=== PATIENT | female | born 1950 | race American Indian/Alaskan Native ===

== ENCOUNTER 2018-05-31 13:51 | Inpatient (IN) | payer MEDICARE ==
[2018-05-31 15:23] LABS: BASO % 0.8 % (0.0-2.0); EOS # 0.1 K/uL (0.0-0.7); EOS % 2.7 % (0.0-4.0); HEMOGLOBIN 12.5 g/dL (11.0-16.0); LYMPH # 1.1 K/uL (1.0-4.3); LYMPH % 23.2 % (20.0-40.0); MEAN CELL VOLUME 80.7 fL (81.0-99.0); MEAN CORPUSCULAR HEMOGLOBIN 26.2 pg (27.0-31.0); MEAN CORPUSCULAR HGB CONC 32.5 g/dL (33.0-37.0); MONO # 0.4 K/uL (0.0-0.8); MONO % 7.9 % (0.0-10.0); NEUT % 65.4 % (50.0-75.0); RBC 4.76 Mil/uL (3.80-5.20); RED CELL DISTRIBUTION WIDTH 14.7 % (11.5-14.5); WHITE BLOOD COUNT 4.6 K/uL (4.8-10.8)
[2018-05-31] MEDS ORDERED: Sodium Chloride 0.9% 1,000 ML IV ONE (15:33)
[2018-05-31 15:36] LABS: BLOOD UREA NITROGEN 9 mg/dL (7-17); CALCIUM 9.4 mg/dl (8.6-10.4); GFR NON-AFRICAN AMERICAN 45; LIPASE 32 U/L (23-300)
[2018-05-31 15:37] LABS: ALBUMIN 4.2 g/dL (3.5-5.0); ALT/SGPT < 6 U/L (9-52); AST/SGOT 20 U/L (14-36)
[2018-05-31] MEDS ORDERED: Iohexol 350mg/ml 100 ML ONE (17:28)
--- NOTE | 2018-05-31 18:27 | C.PDOC ---
History Of Present Illness 67 year old female presents to the ED for evaluation of nausea and vomiting which began two months ago. Patient also reports mild abdominal pain and diarrhea. Patient saw her GI Dr. Reid who did endoscopy on 05/02. They went to get results today, and told that symptoms are caused by reflux. Patient stated to him that she still has vomiting and diarrhea and was sent to the ED for further evaluation. Last diarrhea was this morning. daughter also states that patient lost 25 pounds over the past month. surgical history of appendectomy, cholecysectomy, some back surgery, SAADIA Time Seen by Provider: 05/31/18 14:37 Chief Complaint (Nursing): GI Problem History Per: Patient History/Exam Limitations: no limitations Past Medical History Reviewed: Historical Data, Nursing Documentation, Vital Signs Vital Signs: Last Vital Signs Temp 98 F 05/31/18 14:02 Pulse 107 H 05/31/18 14:02 Resp 20 05/31/18 14:02 BP 117/92 H 05/31/18 14:02 Pulse Ox 98 05/31/18 14:02 - Medical History PMH: Asthma, HTN, Hyperlipidemia Surgical History: Appendectomy, Back Surgery, Cholecystectomy, Tonsillectomy Family History: States: No Known Family Hx - Social History Hx Alcohol Use: No Hx Substance Use: No - Immunization History Hx Tetanus Toxoid Vaccination: No Hx Influenza Vaccination: Yes (11/2017) Hx Pneumococcal Vaccination: No Review Of Systems Gastrointestinal: Positive for: Abdominal Pain, Diarrhea Physical Exam - Physical Exam Appears: Non-toxic, No Acute Distress Skin: Normal Color, Warm, Dry Head: Atraumatic, Normacephalic Eye(s): bilateral: Normal Inspection Oral Mucosa: Moist Neck: Supple Chest: Symmetrical, No Deformity, No Tenderness Cardiovascular: Rhythm Regular, No Murmur Respiratory: Normal Breath Sounds, No Rales, No Rhonchi, No Wheezing Gastrointestinal/Abdominal: Bowel Sounds (decreased ), Soft, No Tenderness, No Guarding, No Rebound, No Hernia, Other (obese ) Back: No CVA Tenderness Extremity: Normal ROM, Capillary Refill (less than2 seconds ) Neurological/Psych: Oriented x3, Normal Speech Gait: Steady ED Course And Treatment - Laboratory Results Result Diagrams: 06/07/18 07:47 06/07/18 07:47 Lab Results: Total Bilirubin 1.1 mg/dL (0.2-1.3) 05/31/18 15:13 AST 20 U/L (14-36) 05/31/18 15:13 ALT < 6 U/L (9-52) L 05/31/18 15:13 Alkaline Phosphatase 97 U/L (38-126) 05/31/18 15:13 Total Protein 8.4 g/dL (6.3-8.3) H 05/31/18 15:13 Albumin 4.2 g/dL (3.5-5.0) 05/31/18 15:13 Globulin 4.2 gm/dL (2.2-3.9) H 05/31/18 15:13 Albumin/Globulin Ratio 1.0 (1.0-2.1) 05/31/18 15:13 Lipase 32 U/L (23-300) 05/31/18 15:13 O2 Sat by Pulse Oximetry: 98 Medical Decision Making Medical Decision Making: bloodwork, urinalysis CT ordered and reviewed. Zofran and ivf given. CT interpreted by rad as possible acute diverticulitis. Plan abx, admit for further evaluation and management. Patient agreeable w/POC. 18:50 Case d/w Dr. Bruner who accepts patient to his service. Disposition Counseled Patient/Family Regarding: Studies Performed, Diagnosis - Disposition Disposition: HOSPITALIZED Disposition Time: 18:50 Condition: STABLE - Clinical Impression Clinical Impression: Diarrhea, Nausea and vomiting, Abdominal pain
--- NOTE | 2018-05-31 18:29 | CT ---
Date of service: 05/31/2018 PROCEDURE: CT Abdomen and Pelvis with contrast HISTORY: Abdominal pain and vomiting COMPARISON: None available. TECHNIQUE: CT scan of the abdomen and pelvis was performed after administration of intravenous contrast. Oral contrast was not administered. Coronal and sagittal reformatted images were obtained. Contrast dose: 100 mL Omnipaque 320 Radiation dose: Total exam DLP = 1162.29 mGy-cm. This CT exam was performed using one or more of the following dose reduction techniques: Automated exposure control, adjustment of the mA and/or kV according to patient size, and/or use of iterative reconstruction technique. FINDINGS: LOWER THORAX: The visualized lungs are clear. LIVER: Mild hepatomegaly and fatty liver. Normal homogeneous enhancement. No gross lesion or ductal dilatation. GALLBLADDER AND BILE DUCTS: Well distended. No calcified gallstones, wall thickening or pericholecystic fluid. PANCREAS: Fatty replacement of the pancreas. Normal homogeneous enhancement. No gross lesion or ductal dilatation. SPLEEN: Normal in size and appearance. ADRENALS: No discrete nodule. KIDNEYS AND URETERS: Normal in size with homogeneous enhancement. No hydronephrosis. No solid mass. Simple cysts in both kidneys, the largest in the left upper pole measures 3.4 x 3.3 cm. VASCULATURE: No aortic aneurysm. There are no aortic atherosclerotic calcifications or mural plaque present. BOWEL: Evaluation of the bowel is limited in the absence of oral contrast. The small bowel loops are normal in caliber. There is left colonic diverticulosis. There is apparent circumferential mural thickening in the proximal sigmoid colon. There is fluid in the rectum and distal sigmoid colon with mild mucosal enhancement. No bowel dilatation or obstruction. APPENDIX: Not visualized. No inflammatory changes in the right lower quadrant. PERITONEUM: No free fluid. No free air. LYMPH NODES: No enlarged lymph nodes. BLADDER: Well distended and normal in appearance. REPRODUCTIVE: The uterus is normal in size. The central endometrial echo complex is thick for postmenopausal status. BONES: No acute fracture. Status post posterior spinal fixation with transpedicular screws in the lower lumbar spine. OTHER FINDINGS: None. IMPRESSION: 1. Left colonic diverticulosis. Apparent circumferential mural thickening in the sigmoid colon is nonspecific and could be related to underdistention however acute diverticulitis cannot be excluded. Fluid and mucosal enhancement in the distal sigmoid colon and rectum could represent nonspecific colitis/proctitis. Clinical follow-up is advised. 2. The central endometrial echo complex is thickened for postmenopausal status. Please correlate with pelvic ultrasound examination. 3. Mild hepatomegaly and fatty liver. 4. Simple renal cysts, the largest in the left upper pole measures 3.4 cm.
[2018-05-31] MEDS ORDERED: metroNIDAZOLE IV 500 mg/100 ml 500 MG/100 ML BAG IVPB STA (18:58)
[2018-05-31] MEDS ORDERED: metroNIDAZOLE IV 500 mg/100 ml 500 MG/100 ML BAG ONE (19:47)
[2018-05-31] MEDS ORDERED: Sodium Chloride 0.9% 1,000 ML ONE (19:47)
[2018-05-31] MEDS: Sodium Chloride 0.9% 1,000 ML IV SCH (19:50)
[2018-05-31] MEDS: Ciprofloxacin 400mg/200ml D5W 400 MG/200 ML BAG IVPB SCH (22:08)
[2018-05-31 23:03] LABS: SQUAMOUS EPITHIAL 6 /hpf (0-5); URINE BACTERIA RARE (<OCC); URINE BILIRUBIN NEGATIVE (NEGATIVE); URINE BLOOD NEGATIVE (NEGATIVE); URINE CLARITY Clear (Clear); URINE COLOR Yellow (YELLOW); URINE GLUCOSE (UA) NORMAL (Normal); URINE LEUKOCYTE ESTERASE NEG Leu/uL (Negative); URINE PROTEIN NEGATIVE (NEGATIVE); URINE UROBILINOGEN NORMAL mg/dL (0.2-1.0)
[2018-06-01] MEDS: Sodium Chloride 0.9% 1,000 ML IV SCH ×3 (05:46→15:55)
[2018-06-01] MEDS ORDERED: metroNIDAZOLE IV 500 mg/100 ml 500 MG/100 ML BAG IVPB SCH (06:00)
--- NOTE | 2018-06-01 09:03 | CP.PCM.CON ---
Past Patient History - Past Medical History & Family History Past Medical History?: Yes - Past Social History Smoking Status: Never Smoked - CARDIAC Hx Cardiac Disorders: Yes Hx Hypertension: Yes - PULMONARY Hx Respiratory Disorders: Yes Hx Asthma: Yes - NEUROLOGICAL Hx Neurological Disorder: No - HEENT Hx HEENT Problems: No - RENAL Hx Chronic Kidney Disease: No - ENDOCRINE/METABOLIC Hx Endocrine Disorders: No - HEMATOLOGICAL/ONCOLOGICAL Hx Blood Disorders: No - INTEGUMENTARY Hx Dermatological Problems: No - MUSCULOSKELETAL/RHEUMATOLOGICAL Hx Musculoskeletal Disorders: No Hx Falls: No - GASTROINTESTINAL Hx Gastrointestinal Disorders: Yes Other/Comment: abdominal pain - GENITOURINARY/GYNECOLOGICAL Hx Genitourinary Disorders: No - PSYCHIATRIC Hx Psychophysiologic Disorder: No Hx Substance Use: No - SURGICAL HISTORY Hx Surgeries: Yes Hx Appendectomy: Yes Hx Cholecystectomy: Yes Hx Tonsillectomy: Yes - ANESTHESIA Hx Anesthesia: Yes Hx Anesthesia Reactions: No Hx Malignant Hyperthermia: No Meds Allergies/Adverse Reactions: Allergies Allergy/AdvReac Type Severity Reaction Status Date / Time No Known Allergies Allergy Verified 05/31/18 14:06 - Medications Medications: Current Medications Albuterol/Ipratropium (Duoneb 3 Mg/0.5 Mg (3 Ml) Ud) 3 ml INH RQ6 [facility] Enoxaparin Sodium (Lovenox) 40 mg SC DAILY [facility] Home Med (Valsartan/Hydrochlorothiazide [Valsartan-Hctz 160-12.5 Mg Tab]) 1 tab PO DAILY [facility] Sodium Chloride (Sodium Chloride 0.9%) 1,000 mls @ 100 mls/hr IV .Q10H [facility] Last Admin: 06/01/18 05:46 Dose: Not Given Ciprofloxacin (Cipro 400mg/200ml Dsw) 400 mg in 200 mls @ 133 mls/hr IVPB Q12H [facility]; Protocol Last Admin: 05/31/18 22:08 Dose: 133 mls/hr Metronidazole (Flagyl) 500 mg in 100 mls @ 100 mls/hr IVPB Q8H [facility]; Protocol Last Admin: 06/01/18 05:41 Dose: 100 mls/hr Nebivolol (Bystolic) 5 mg PO ONCE [facility] Ondansetron HCl (Zofran Inj) 4 mg IVP Q6 PRN PRN Reason: Nausea/Vomiting Pantoprazole Sodium (Protonix Inj) 40 mg IVP Q12H [facility] Last Admin: 05/31/18 22:19 Dose: 40 mg Rosuvastatin Calcium (Crestor) 10 mg PO HS [facility] Last Admin: 05/31/18 22:20 Dose: 10 mg Results - Vital Signs Recent Vital Signs: Last Vital Signs Temp 98.1 F 06/01/18 07:26 Pulse 79 06/01/18 07:26 Resp 20 06/01/18 07:26 BP 127/79 06/01/18 07:26 Pulse Ox 98 06/01/18 07:26 - Labs Result Diagrams: 05/31/18 15:13 05/31/18 15:13 Labs: Laboratory Results - last 24 hr 05/31/18 05/31/18 05/31/18 15:13 15:13 21:22 WBC 4.6 L RBC 4.76 Hgb 12.5 Hct 38.4 MCV 80.7 L MCH 26.2 L MCHC 32.5 L RDW 14.7 H Plt Count 221 MPV 10.0 Neut % (Auto) 65.4 Lymph % (Auto) 23.2 [place] % (Auto) 7.9 Eos % (Auto) 2.7 Baso % (Auto) 0.8 Neut # (Auto) 3.0 Lymph # (Auto) 1.1 [place] # (Auto) 0.4 Eos # (Auto) 0.1 Baso # (Auto) 0.0 Sodium 138 Potassium 4.5 Chloride 101 Carbon Dioxide 22 Anion Gap 18 BUN 9 Creatinine 1.2 Est GFR ( Amer) 54 Est GFR (Non-Af Amer) 45 Random Glucose 101 Calcium 9.4 Total Bilirubin 1.1 AST 20 ALT < 6 L Alkaline Phosphatase 97 Total Protein 8.4 H Albumin 4.2 Globulin 4.2 H Albumin/Globulin Ratio 1.0 Lipase 32 Urine Color Urine Clarity Urine pH Ur Specific [place] Urine Protein Urine Glucose (UA) Urine Ketones Urine Blood Urine Nitrate Urine Bilirubin Urine Urobilinogen Ur Leukocyte Esterase Urine WBC (Auto) Urine RBC (Auto) Ur Squamous Epith Cells Urine Bacteria Theophylline 9.8 L 05/31/18 22:54 WBC RBC Hgb Hct MCV MCH MCHC RDW Plt Count MPV Neut % (Auto) Lymph % (Auto) [place] % (Auto) Eos % (Auto) Baso % (Auto) Neut # (Auto) Lymph # (Auto) [place] # (Auto) Eos # (Auto) Baso # (Auto) Sodium Potassium Chloride Carbon Dioxide Anion Gap BUN Creatinine Est GFR ( Amer) Est GFR (Non-Af Amer) Random Glucose Calcium Total Bilirubin AST ALT Alkaline Phosphatase Total Protein Albumin Globulin Albumin/Globulin Ratio Lipase Urine Color Yellow Urine Clarity Clear Urine pH 6.0 Ur Specific [place] 1.015 Urine Protein Negative Urine Glucose (UA) Normal Urine Ketones Negative Urine Blood Negative Urine Nitrate Negative Urine Bilirubin Negative Urine Urobilinogen Normal Ur Leukocyte Esterase Neg Urine WBC (Auto) 2 Urine RBC (Auto) 2 Ur Squamous Epith Cells 6 H Urine Bacteria Rare Theophylline
--- NOTE | 2018-06-01 09:14 | CP.PCM.CON ---
History of Present Illness - History of Present Illness History of Present Illness: Covering Dr Harper CC: nausea, vomitind, diarrhea FLORY: 67 yr old asthmatic woman admitted with persistent vomiting and watery diarrhea since March accompanied by poor appetite, 20 lb weight loss and abdominal discomfort. EGD by Dr Harper was apparently non diagnostic and patient has not responded to PPI treatment for GERD. She denies fevers or blood in stool. Denies changes in medications. CT without oral contrast suggested sigmoid inflammation in region of diverticulosis so patient was begun on Cipro and Flagyl for diverticulitis. Review of Systems - Review of Systems All systems: reviewed and no additional remarkable complaints except - Constitutional Constitutional: Anorexia, Weight Loss, Weakness - Respiratory Respiratory: Dyspnea - Gastrointestinal Gastrointestinal: Diarrhea, Vomiting Past Patient History - Past Medical History & Family History Past Medical History?: Yes - Past Social History Smoking Status: Never Smoked Alcohol: None - CARDIAC Hx Cardiac Disorders: Yes Hx Hypertension: Yes - PULMONARY Hx Respiratory Disorders: Yes Hx Asthma: Yes - NEUROLOGICAL Hx Neurological Disorder: No - HEENT Hx HEENT Problems: No - RENAL Hx Chronic Kidney Disease: No - ENDOCRINE/METABOLIC Hx Endocrine Disorders: No - HEMATOLOGICAL/ONCOLOGICAL Hx Blood Disorders: No - INTEGUMENTARY Hx Dermatological Problems: No - MUSCULOSKELETAL/RHEUMATOLOGICAL Hx Musculoskeletal Disorders: No Hx Falls: No - GASTROINTESTINAL Hx Gastrointestinal Disorders: Yes Other/Comment: abdominal pain - GENITOURINARY/GYNECOLOGICAL Hx Genitourinary Disorders: No - PSYCHIATRIC Hx Psychophysiologic Disorder: No Hx Substance Use: No - SURGICAL HISTORY Hx Surgeries: Yes Hx Appendectomy: Yes Hx Cholecystectomy: Yes Hx Tonsillectomy: Yes - ANESTHESIA Hx Anesthesia: Yes Hx Anesthesia Reactions: No Hx Malignant Hyperthermia: No Meds Allergies/Adverse Reactions: Allergies Allergy/AdvReac Type Severity Reaction Status Date / Time No Known Allergies Allergy Verified 05/31/18 14:06 - Medications Medications: Current Medications Albuterol/Ipratropium (Duoneb 3 Mg/0.5 Mg (3 Ml) Ud) 3 ml INH RQ6 [facility] Enoxaparin Sodium (Lovenox) 40 mg SC DAILY [facility] Home Med (Valsartan/Hydrochlorothiazide [Valsartan-Hctz 160-12.5 Mg Tab]) 1 tab PO DAILY [facility] Sodium Chloride (Sodium Chloride 0.9%) 1,000 mls @ 100 mls/hr IV .Q10H [facility] Last Admin: 06/01/18 05:46 Dose: Not Given Ciprofloxacin (Cipro 400mg/200ml Dsw) 400 mg in 200 mls @ 133 mls/hr IVPB Q12H [facility]; Protocol Last Admin: 05/31/18 22:08 Dose: 133 mls/hr Metronidazole (Flagyl) 500 mg in 100 mls @ 100 mls/hr IVPB Q8H [facility]; Protocol Last Admin: 06/01/18 05:41 Dose: 100 mls/hr Nebivolol (Bystolic) 5 mg PO ONCE [facility] Ondansetron HCl (Zofran Inj) 4 mg IVP Q6 PRN PRN Reason: Nausea/Vomiting Pantoprazole Sodium (Protonix Inj) 40 mg IVP Q12H [facility] Last Admin: 05/31/18 22:19 Dose: 40 mg Rosuvastatin Calcium (Crestor) 10 mg PO HS [facility] Last Admin: 05/31/18 22:20 Dose: 10 mg Physical Exam - Constitutional Appears: Well, No Acute Distress - Head Exam Head Exam: ATRAUMATIC, NORMOCEPHALIC - Eye Exam Eye Exam: Normal appearance. absent: Scleral icterus - ENT Exam ENT Exam: Normal Exam - Neck Exam Neck exam: Positive for: Normal Inspection - Respiratory Exam Respiratory Exam: Clear to Auscultation Bilateral - Cardiovascular Exam Cardiovascular Exam: REGULAR RHYTHM - GI/Abdominal Exam GI & Abdominal Exam: Normal Bowel Sounds, Soft. absent: Distended, Guarding, Mass, Tenderness - Extremities Exam Extremities exam: Positive for: normal inspection - Neurological Exam Neurological exam: Alert, Oriented x3 - Psychiatric Exam Psychiatric exam: Normal Affect, Normal Mood - Skin Skin Exam: Normal Color Results - Vital Signs Recent Vital Signs: Last Vital Signs Temp 98.1 F 06/01/18 07:26 Pulse 79 06/01/18 07:26 Resp 20 06/01/18 07:26 BP 127/79 06/01/18 07:26 Pulse Ox 98 06/01/18 07:26 - Labs Result Diagrams: 05/31/18 15:13 05/31/18 15:13 Labs: Laboratory Results - last 24 hr 05/31/18 05/31/18 05/31/18 15:13 15:13 21:22 WBC 4.6 L RBC 4.76 Hgb 12.5 Hct 38.4 MCV 80.7 L MCH 26.2 L MCHC 32.5 L RDW 14.7 H Plt Count 221 MPV 10.0 Neut % (Auto) 65.4 Lymph % (Auto) 23.2 [place] % (Auto) 7.9 Eos % (Auto) 2.7 Baso % (Auto) 0.8 Neut # (Auto) 3.0 Lymph # (Auto) 1.1 [place] # (Auto) 0.4 Eos # (Auto) 0.1 Baso # (Auto) 0.0 Sodium 138 Potassium 4.5 Chloride 101 Carbon Dioxide 22 Anion Gap 18 BUN 9 Creatinine 1.2 Est GFR ( Amer) 54 Est GFR (Non-Af Amer) 45 Random Glucose 101 Calcium 9.4 Total Bilirubin 1.1 AST 20 ALT < 6 L Alkaline Phosphatase 97 Total Protein 8.4 H Albumin 4.2 Globulin 4.2 H Albumin/Globulin Ratio 1.0 Lipase 32 Urine Color Urine Clarity Urine pH Ur Specific [place] Urine Protein Urine Glucose (UA) Urine Ketones Urine Blood Urine Nitrate Urine Bilirubin Urine Urobilinogen Ur Leukocyte Esterase Urine WBC (Auto) Urine RBC (Auto) Ur Squamous Epith Cells Urine Bacteria Theophylline 9.8 L 05/31/18 22:54 WBC RBC Hgb Hct MCV MCH MCHC RDW Plt Count MPV Neut % (Auto) Lymph % (Auto) [place] % (Auto) Eos % (Auto) Baso % (Auto) Neut # (Auto) Lymph # (Auto) [place] # (Auto) Eos # (Auto) Baso # (Auto) Sodium Potassium Chloride Carbon Dioxide Anion Gap BUN Creatinine Est GFR ( Amer) Est GFR (Non-Af Amer) Random Glucose Calcium Total Bilirubin AST ALT Alkaline Phosphatase Total Protein Albumin Globulin Albumin/Globulin Ratio Lipase Urine Color Yellow Urine Clarity Clear Urine pH 6.[address] 1.015 Urine Protein Negative Urine Glucose (UA) Normal Urine Ketones Negative Urine Blood Negative Urine Nitrate Negative Urine Bilirubin Negative Urine Urobilinogen Normal Ur Leukocyte Esterase Neg Urine WBC (Auto) 2 Urine RBC (Auto) 2 Ur Squamous Epith Cells 6 H Urine Bacteria Rare Theophylline Assessment & Plan (1) Chronic diarrhea Assessment and Plan: Clinically patient does not have diverticulitis. R/O infectious diarrhea. I suspect Sprue-like enteropathy from Valsartan: there have been reports of malabsorption syndrome from this class of drugs. Rec: Stop Valsartan. Check stool studies for infectious enteric pathogens. Stop antibiotics. Monitor clinically Status: Acute
[2018-06-01] MEDS: Ciprofloxacin 400mg/200ml D5W 400 MG/200 ML BAG IVPB SCH ×2 (09:58→22:12)
[2018-06-01] MEDS ORDERED: Home Med 1 UNIT (Valsartan/Hydrochlorothiazide [Valsartan-Hctz 160-12.5 Mg Tab] 1 TAB) PO SCH (10:00)
[2018-06-01] MEDS: Albuterol-Ipratrop 3 mg / 0.5 (3 ml) UD INH SCH ×2 (10:01→19:44)
[2018-06-01] MEDS: Enoxaparin 40 mg Syringe SC SCH (10:06)
--- NOTE | 2018-06-01 17:10 | CP.PCM.HP ---
Past Patient History - Past Medical History & Family History Past Medical History?: Yes - Past Social History Smoking Status: Never Smoked Alcohol: None - CARDIAC Hx Cardiac Disorders: Yes Hx Hypertension: Yes - PULMONARY Hx Respiratory Disorders: Yes Hx Asthma: Yes - NEUROLOGICAL Hx Neurological Disorder: No - HEENT Hx HEENT Problems: No - RENAL Hx Chronic Kidney Disease: No - ENDOCRINE/METABOLIC Hx Endocrine Disorders: No - HEMATOLOGICAL/ONCOLOGICAL Hx Blood Disorders: No - INTEGUMENTARY Hx Dermatological Problems: No - MUSCULOSKELETAL/RHEUMATOLOGICAL Hx Musculoskeletal Disorders: No Hx Falls: No - GASTROINTESTINAL Hx Gastrointestinal Disorders: Yes Other/Comment: abdominal pain - GENITOURINARY/GYNECOLOGICAL Hx Genitourinary Disorders: No - PSYCHIATRIC Hx Psychophysiologic Disorder: No Hx Substance Use: No - SURGICAL HISTORY Hx Surgeries: Yes Hx Appendectomy: Yes Hx Cholecystectomy: Yes Hx Tonsillectomy: Yes - ANESTHESIA Hx Anesthesia: Yes Hx Anesthesia Reactions: No Hx Malignant Hyperthermia: No Meds Allergies/Adverse Reactions: Allergies Allergy/AdvReac Type Severity Reaction Status Date / Time No Known Allergies Allergy Verified 05/31/18 14:06 Results - Vital Signs Recent Vital Signs: Last Vital Signs Temp 98.1 F 06/01/18 15:53 Pulse 73 06/01/18 15:53 Resp 20 06/01/18 15:53 BP 150/83 06/01/18 15:53 Pulse Ox 95 06/01/18 15:53 - Labs Result Diagrams: 05/31/18 15:13 05/31/18 15:13 Labs: Laboratory Results - last 24 hr 05/31/18 05/31/18 06/01/18 21:22 22:54 04:06 Urine Color Yellow Urine Clarity Clear Urine pH 6.0 Ur Specific [place] 1.015 Urine Protein Negative Urine Glucose (UA) Normal Urine Ketones Negative Urine Blood Negative Urine Nitrate Negative Urine Bilirubin Negative Urine Urobilinogen Normal Ur Leukocyte Esterase Neg Urine WBC (Auto) 2 Urine RBC (Auto) 2 Ur Squamous Epith Cells 6 H Urine Bacteria Rare Theophylline 9.8 L C. difficile Ag & Toxin Negative
[2018-06-01] MEDS: metroNIDAZOLE IV 500 mg/100 ml 500 MG/100 ML BAG IVPB SCH (19:31)
[2018-06-02] MEDS: Albuterol-Ipratrop 3 mg / 0.5 (3 ml) UD INH SCH (02:02)
[2018-06-02] MEDS: metroNIDAZOLE IV 500 mg/100 ml 500 MG/100 ML BAG IVPB SCH ×3 (03:31→19:33)
[2018-06-02] MEDS: Sodium Chloride 0.9% 1,000 ML IV SCH ×4 (05:15→21:18)
[2018-06-02] MEDS: Ciprofloxacin 400mg/200ml D5W 400 MG/200 ML BAG IVPB SCH ×2 (09:57→22:29)
[2018-06-02] MEDS: Enoxaparin 40 mg Syringe SC SCH (09:57)
--- NOTE | 2018-06-02 11:17 | CP.PCM.PN ---
Subjective - Date & Time of Evaluation Date of Evaluation: 06/02/18 Time of Evaluation: 11:14 - Subjective Subjective: Covering Dr Harper Discussed with medical attending yesterday need to possibly adjust BP meds off Valsartan Today pt is little changed. Still has upper abdominal discomfort, diarrhea, and poor appetite, can not eat because she feels nauseated Stool CDiff toxin negative Objective - Vital Signs/Intake and Output Vital Signs (last 24 hours): Temp Pulse Resp BP Pulse Ox 98.8 F 68 20 129/78 96 06/02/18 07:33 06/02/18 07:33 06/02/18 07:33 06/02/18 07:33 06/02/18 07:33 Intake and Output: 06/02/18 06/02/18 06:59 18:59 Intake Total 1590 Balance 1590 - Medications Medications: Current Medications Albuterol/Ipratropium (Duoneb 3 Mg/0.5 Mg (3 Ml) Ud) 3 ml INH RQ6 [facility] Last Admin: 06/02/18 02:02 Dose: Not Given Enoxaparin Sodium (Lovenox) 40 mg SC DAILY [facility] Last Admin: 06/02/18 09:57 Dose: 40 mg Sodium Chloride (Sodium Chloride 0.9%) 1,000 mls @ 100 mls/hr IV .Q10H [facility] Last Admin: 06/02/18 10:00 Dose: Not Given Metronidazole (Flagyl) 500 mg in 100 mls @ 100 mls/hr IVPB Q8H [facility]; Protocol Last Admin: 06/02/18 03:31 Dose: 100 mls/hr Ciprofloxacin (Cipro 400mg/200ml Dsw) 400 mg in 200 mls @ 133 mls/hr IVPB Q12H [facility]; Protocol Last Admin: 06/02/18 09:57 Dose: 133 mls/hr Influenza Virus Vaccine (Flucelvax Quad [id number] Syr) 60 mcg IM .ONCE ONE Stop: 06/04/18 10:01 Nebivolol (Bystolic) 5 mg PO DAILY [facility] Last Admin: 06/02/18 09:57 Dose: 5 mg Ondansetron HCl (Zofran Inj) 4 mg IVP Q6 PRN PRN Reason: Nausea/Vomiting Pneumococcal Polyvalent Vaccine (Pneumovax 23 Vaccine) 0.5 ml IM .ONCE ONE Stop: 06/04/18 10:01 Rosuvastatin Calcium (Crestor) 10 mg PO HS [facility] Last Admin: 06/01/18 22:12 Dose: 10 mg - Labs Labs: 05/31/18 15:13 05/31/18 15:13 - Constitutional Appears: Well, No Acute Distress - Head Exam Head Exam: NORMOCEPHALIC - Cardiovascular Exam Cardiovascular Exam: RRR - GI/Abdominal Exam GI & Abdominal Exam: Soft. absent: Tenderness Assessment and Plan (1) Chronic diarrhea Assessment & Plan: Monitor off Valsartan Check stool studies Add bentyl for abdominal discomfort Status: Acute
--- NOTE | 2018-06-02 17:49 | CP.PCM.PN ---
Subjective - Date & Time of Evaluation Date of Evaluation: 06/02/18 Time of Evaluation: 17:49 Objective - Vital Signs/Intake and Output Vital Signs (last 24 hours): Temp Pulse Resp BP Pulse Ox 98.2 F 67 20 138/84 95 06/02/18 15:05 06/02/18 15:05 06/02/18 15:05 06/02/18 15:05 06/02/18 15:05 Intake and Output: 06/02/18 06/02/18 06:59 18:59 Intake Total 1590 1210 Balance 1590 1210 - Medications Medications: Current Medications Albuterol/Ipratropium (Duoneb 3 Mg/0.5 Mg (3 Ml) Ud) 3 ml INH RQ6 [facility] Last Admin: 06/02/18 02:02 Dose: Not Given Dicyclomine HCl (Bentyl) 10 mg PO QID [facility] Last Admin: 06/02/18 13:55 Dose: 10 mg Enoxaparin Sodium (Lovenox) 40 mg SC DAILY [facility] Last Admin: 06/02/18 09:57 Dose: 40 mg Sodium Chloride (Sodium Chloride 0.9%) 1,000 mls @ 100 mls/hr IV .Q10H [facility] Last Admin: 06/02/18 10:00 Dose: Not Given Metronidazole (Flagyl) 500 mg in 100 mls @ 100 mls/hr IVPB Q8H [facility]; Protocol Last Admin: 06/02/18 12:08 Dose: 100 mls/hr Ciprofloxacin (Cipro 400mg/200ml Dsw) 400 mg in 200 mls @ 133 mls/hr IVPB Q12H [facility]; Protocol Last Admin: 06/02/18 09:57 Dose: 133 mls/hr Influenza Virus Vaccine (Flucelvax Quad [id number] Syr) 60 mcg IM .ONCE ONE Stop: 06/04/18 10:01 Nebivolol (Bystolic) 5 mg PO DAILY [facility] Last Admin: 06/02/18 09:57 Dose: 5 mg Ondansetron HCl (Zofran Inj) 4 mg IVP Q6 PRN PRN Reason: Nausea/Vomiting Last Admin: 06/02/18 14:04 Dose: 4 mg Pneumococcal Polyvalent Vaccine (Pneumovax 23 Vaccine) 0.5 ml IM .ONCE ONE Stop: 06/04/18 10:01 Rosuvastatin Calcium (Crestor) 10 mg PO [facility] Last Admin: 06/01/18 22:12 Dose: 10 mg - Labs Labs: 05/31/18 15:13 05/31/18 15:13
[2018-06-02] MEDS ORDERED: Albuterol-Ipratrop 3 mg / 0.5 (3 ml) UD INH PRN (18:01)
[2018-06-03] MEDS: metroNIDAZOLE IV 500 mg/100 ml 500 MG/100 ML BAG IVPB SCH ×3 (05:01→20:54)
[2018-06-03] MEDS: Sodium Chloride 0.9% 1,000 ML IV SCH (08:37)
--- NOTE | 2018-06-03 09:33 | CP.PCM.PN ---
Subjective - Date & Time of Evaluation Date of Evaluation: 06/03/18 Time of Evaluation: 09:31 - Subjective Subjective: Patient reports that she has not vomited since Sunday. She continues to experience diarrhea, up to twice a day, both Sunday and Sunday. Dhe has not had a bowel movement so far today. She is currently being treated with ciprofloxacin and metronidazole for presumed diverticulitis (mural thickening of sigmoid colon on CT scan). Objective - Vital Signs/Intake and Output Vital Signs (last 24 hours): Temp Pulse Resp BP Pulse Ox 98.1 F 80 20 121/77 99 06/03/18 08:00 06/03/18 08:00 06/03/18 08:00 06/03/18 08:00 06/03/18 08:00 Intake and Output: 06/03/18 06/03/18 06:59 18:59 Intake Total 1740 Balance 1740 - Medications Medications: Current Medications Albuterol/Ipratropium (Duoneb 3 Mg/0.5 Mg (3 Ml) Ud) 3 ml INH RQ6 PRN PRN Reason: Shortness of Breath Dicyclomine HCl (Bentyl) 10 mg PO QID [facility] Last Admin: 06/02/18 22:28 Dose: 10 mg Enoxaparin Sodium (Lovenox) 40 mg SC DAILY [facility] Last Admin: 06/02/18 09:57 Dose: 40 mg Sodium Chloride (Sodium Chloride 0.9%) 1,000 mls @ 100 mls/hr IV .Q10H [facility] Last Admin: 06/03/18 08:37 Dose: Not Given Metronidazole (Flagyl) 500 mg in 100 mls @ 100 mls/hr IVPB Q8H [facility]; Protocol Last Admin: 06/03/18 05:01 Dose: 100 mls/hr Ciprofloxacin (Cipro 400mg/200ml Dsw) 400 mg in 200 mls @ 133 mls/hr IVPB Q12H [facility]; Protocol Last Admin: 06/02/18 22:29 Dose: 133 mls/hr Influenza Virus Vaccine (Flucelvax Quad 5150-2206 Syr) 60 mcg IM .ONCE ONE Stop: 06/04/18 10:01 Nebivolol (Bystolic) 5 mg PO DAILY [facility] Last Admin: 06/02/18 09:57 Dose: 5 mg Ondansetron HCl (Zofran Inj) 4 mg IVP Q6 PRN PRN Reason: Nausea/Vomiting Last Admin: 06/03/18 08:37 Dose: 4 mg Pneumococcal Polyvalent Vaccine (Pneumovax 23 Vaccine) 0.5 ml IM .ONCE ONE Stop: 06/04/18 10:01 Rosuvastatin Calcium (Crestor) 10 mg PO HS [facility] Last Admin: 06/02/18 22:28 Dose: 10 mg - Labs Labs: 05/31/18 15:13 05/31/18 15:13 - Constitutional Appears: No Acute Distress - Head Exam Head Exam: ATRAUMATIC, NORMOCEPHALIC - Eye Exam Eye Exam: EOMI, PERRL - Neck Exam Neck Exam: absent: Lymphadenopathy, Thyromegaly - Respiratory Exam Respiratory Exam: NORMAL BREATHING PATTERN. absent: Rales, Rhonchi, Wheezes - Cardiovascular Exam Cardiovascular Exam: REGULAR RHYTHM, +S1, +S2. absent: Gallop, Rubs, Murmur - GI/Abdominal Exam GI & Abdominal Exam: Soft, Normal Bowel Sounds. absent: Tenderness, Mass, Organomegaly - Rectal Exam Rectal Exam: Deferred - Extremities Exam Extremities Exam: absent: Calf Tenderness, Pedal Edema Assessment and Plan (1) Nausea and vomiting Assessment & Plan: Patient had EGD 05/02/2018 which showed mild reflux changes at the EG junction, hiatal hernia and erosive gastritis. She has not vomited in 72 hours, but she feels nauseated and has not been able to eat. Will check gastric emptying scan. Status: Acute - Assessment and Plan (Free Text) Assessment: Diarrhea continues. Will check stool cultures, leukocytes, occult blood, fat. Will consider colonoscopy. The last colonosocpy was 03/14/2012 and showed diverticulosis and a diminutive polyp.
[2018-06-03] MEDS: Enoxaparin 40 mg Syringe SC SCH (10:30)
[2018-06-03] MEDS: Ciprofloxacin 400mg/200ml D5W 400 MG/200 ML BAG IVPB SCH ×2 (10:31→22:13)
[2018-06-03 12:19] LABS: BASO % 0.9 % (0.0-2.0); EOS # 0.4 K/uL (0.0-0.7); EOS % 9.5 % (0.0-4.0); LYMPH # 1.3 K/uL (1.0-4.3); LYMPH % 31.7 % (20.0-40.0); MEAN CELL VOLUME 80.9 fL (81.0-99.0); MEAN CORPUSCULAR HEMOGLOBIN 26.2 pg (27.0-31.0); MEAN CORPUSCULAR HGB CONC 32.4 g/dL (33.0-37.0); MEAN PLATELET VOLUME 9.3 fL (7.2-11.7); MONO # 0.4 K/uL (0.0-0.8); MONO % 10.7 % (0.0-10.0); NEUT # 1.9 K/uL (1.8-7.0); NEUT % 47.2 % (50.0-75.0); RBC 4.19 Mil/uL (3.80-5.20); RED CELL DISTRIBUTION WIDTH 14.4 % (11.5-14.5); WHITE BLOOD COUNT 4.1 K/uL (4.8-10.8)
[2018-06-03 12:38] LABS: IRON 37 ug/dL (37-170)
[2018-06-03 12:48] LABS: % IRON SATURATION 19 (20-55); TOTAL IRON BINDING CAPACITY 199 ug/dL (250-450)
[2018-06-03] MEDS ORDERED: Potassium Chloride 20 mEq ER Tab PO ONE (13:30)
[2018-06-03 13:39] LABS: FOLATE 2.4 ng/mL
[2018-06-03] MEDS: Magnesium Sulfate 1 gm in D5W 1 GM/100 ML BAG IVPB SCH ×4 (14:12→16:25)
[2018-06-03] MEDS: Magnesium Oxide 400 mg Tab UD PO SCH (17:51)
--- NOTE | 2018-06-03 18:11 | CP.PCM.PN ---
Subjective - Date & Time of Evaluation Date of Evaluation: 06/03/18 Time of Evaluation: 18:11 Objective - Vital Signs/Intake and Output Vital Signs (last 24 hours): Temp Pulse Resp BP Pulse Ox 98.1 F 64 20 126/73 98 06/03/18 15:53 06/03/18 15:53 06/03/18 15:53 06/03/18 15:53 06/03/18 15:53 Intake and Output: 06/03/18 06/03/18 06:59 18:59 Intake Total 1740 1050 Balance 1740 1050 - Medications Medications: Current Medications Albuterol/Ipratropium (Duoneb 3 Mg/0.5 Mg (3 Ml) Ud) 3 ml INH RQ6 PRN PRN Reason: Shortness of Breath Dicyclomine HCl (Bentyl) 10 mg PO QID [facility] Last Admin: 06/03/18 17:51 Dose: 10 mg Enoxaparin Sodium (Lovenox) 40 mg SC DAILY [facility] Last Admin: 06/03/18 10:30 Dose: 40 mg Metronidazole (Flagyl) 500 mg in 100 mls @ 100 mls/hr IVPB Q8H [facility]; Protocol Last Admin: 06/03/18 12:37 Dose: 100 mls/hr Ciprofloxacin (Cipro 400mg/200ml Dsw) 400 mg in 200 mls @ 133 mls/hr IVPB Q12H [facility]; Protocol Last Admin: 06/03/18 10:31 Dose: 133 mls/hr Potassium Chloride 20 meq/ (Sodium Chloride) 1,010 mls @ 100 mls/hr IV .Q10H6M [facility] Last Admin: 06/03/18 14:58 Dose: 100 mls/hr Influenza Virus Vaccine (Flucelvax Quad 5103-9477 Syr) 60 mcg IM .ONCE ONE Stop: 06/04/18 10:01 Magnesium Oxide (Mag-Ox) 400 mg PO BID [facility] Stop: 06/06/18 18:01 Last Admin: 06/03/18 17:51 Dose: 400 mg Nebivolol (Bystolic) 5 mg PO DAILY [facility] Last Admin: 06/03/18 10:30 Dose: 5 mg Ondansetron HCl (Zofran Inj) 4 mg IVP Q6 PRN PRN Reason: Nausea/Vomiting Last Admin: 06/03/18 08:37 Dose: 4 mg Pneumococcal Polyvalent Vaccine (Pneumovax 23 Vaccine) 0.5 ml IM .ONCE ONE Stop: 06/04/18 10:01 Rosuvastatin Calcium (Crestor) 10 mg PO HS [facility] Last Admin: 06/02/18 22:28 Dose: 10 mg - Labs Labs: 06/03/18 12:11 06/03/18 12:11
[2018-06-03 18:48] LABS: CALCIUM 8.1 mg/dl (8.6-10.4)
[2018-06-04] MEDS: metroNIDAZOLE IV 500 mg/100 ml 500 MG/100 ML BAG IVPB SCH ×3 (04:22→20:48)
[2018-06-04 08:27] LABS: ALBUMIN 2.9 g/dL (3.5-5.0); CALCIUM 8.1 mg/dl (8.6-10.4)
[2018-06-04] MEDS ORDERED: Pneumococcal 23-Valent Vaccine IM ONE (10:00)
[2018-06-04] MEDS ORDERED: Influenza Vaccine 60 mcg/0.5 mL SYR (4YR UP) IM ONE (10:00)
--- NOTE | 2018-06-04 11:02 | CP.PCM.PN ---
Subjective - Date & Time of Evaluation Date of Evaluation: 06/04/18 Time of Evaluation: 10:59 - Subjective Subjective: Patient continues to complain of nausea and vomiting. Gastric emptying scan was canceled owing to vomiting. She states that she had only one bowel movement yesterday which was more formed. She denies having abdominal pain. Objective - Vital Signs/Intake and Output Vital Signs (last 24 hours): Temp Pulse Resp BP Pulse Ox 98 F 75 20 137/86 98 06/04/18 07:53 06/04/18 07:53 06/04/18 07:53 06/04/18 07:53 06/04/18 07:53 Intake and Output: 06/04/18 06/04/18 06:59 18:59 Intake Total 1850 Balance 1850 - Medications Medications: Current Medications Albuterol/Ipratropium (Duoneb 3 Mg/0.5 Mg (3 Ml) Ud) 3 ml INH RQ6 PRN PRN Reason: Shortness of Breath Dicyclomine HCl (Bentyl) 10 mg PO QID [facility] Last Admin: 06/03/18 21:53 Dose: 10 mg Enoxaparin Sodium (Lovenox) 40 mg SC DAILY [facility] Last Admin: 06/03/18 10:30 Dose: 40 mg Metronidazole (Flagyl) 500 mg in 100 mls @ 100 mls/hr IVPB Q8H [facility]; Protocol Last Admin: 06/04/18 04:22 Dose: 100 mls/hr Ciprofloxacin (Cipro 400mg/200ml Dsw) 400 mg in 200 mls @ 133 mls/hr IVPB Q12H [facility]; Protocol Last Admin: 06/03/18 22:13 Dose: 133 mls/hr Potassium Chloride 20 meq/ (Sodium Chloride) 1,010 mls @ 100 mls/hr IV .Q10H6M [facility] Last Admin: 06/03/18 23:13 Dose: Not Given Folic Acid 1 mg/ Sodium (Chloride) 100.2 mls @ 60 mls/hr IV DAILY [facility] Magnesium Oxide (Mag-Ox) 400 mg PO BID [facility] Stop: 06/06/18 18:01 Last Admin: 06/03/18 17:51 Dose: 400 mg Nebivolol (Bystolic) 5 mg PO DAILY [facility] Last Admin: 06/03/18 10:30 Dose: 5 mg Ondansetron HCl (Zofran Inj) 4 mg IVP Q6 PRN PRN Reason: Nausea/Vomiting Last Admin: 06/03/18 21:53 Dose: 4 mg Rosuvastatin Calcium (Crestor) 10 mg PO HS [facility] Last Admin: 06/03/18 21:53 Dose: 10 mg - Labs Labs: 06/03/18 12:11 06/04/18 07:46 - Constitutional Appears: No Acute Distress - Head Exam Head Exam: ATRAUMATIC, NORMOCEPHALIC - Neck Exam Neck Exam: absent: Lymphadenopathy, Thyromegaly - Respiratory Exam Respiratory Exam: NORMAL BREATHING PATTERN. absent: Rhonchi, Wheezes, Respiratory Distress - Cardiovascular Exam Cardiovascular Exam: REGULAR RHYTHM, +S1, +S2. absent: Rubs, Murmur - GI/Abdominal Exam GI & Abdominal Exam: Soft, Normal Bowel Sounds. absent: Tenderness, Mass, Organomegaly - Rectal Exam Rectal Exam: Deferred - Extremities Exam Extremities Exam: absent: Calf Tenderness, Pedal Edema Assessment and Plan (1) Nausea and vomiting Assessment & Plan: Patient continues to complain of nausea and vomiting. Folate deficiency was diagnosed yesterday. Will begin folate supplementation IV. CT of the head has been ordered. Will repeat EGD tomorrow. Status: Acute
[2018-06-04] MEDS: Magnesium Oxide 400 mg Tab UD PO SCH ×3 (11:03→20:51)
[2018-06-04] MEDS: Ciprofloxacin 400mg/200ml D5W 400 MG/200 ML BAG IVPB SCH ×2 (11:08→21:15)
[2018-06-04] MEDS: Enoxaparin 40 mg Syringe SC SCH (11:14)
[2018-06-04] MEDS ORDERED: Magnesium Sulfate 1 gm in D5W 1 GM/100 ML BAG IVPB ONE (11:39)
--- NOTE | 2018-06-04 12:26 | CT ---
Date of service: 06/04/2018 PROCEDURE: CT HEAD WITHOUT CONTRAST. HISTORY: vomiting, rule out mass, bleed COMPARISON: None available. TECHNIQUE: Axial computed tomography images were obtained through the head/brain without intravenous contrast. Radiation dose: Total exam DLP = 1182.93 mGy-cm. This CT exam was performed using one or more of the following dose reduction techniques: Automated exposure control, adjustment of the mA and/or kV according to patient size, and/or use of iterative reconstruction technique. FINDINGS: HEMORRHAGE: No intracranial hemorrhage. BRAIN: There are mild chronic microangiopathic changes. There is an asymmetric low attenuation area in the left anterior limb of the internal capsule. There is no mass, mass effect or abnormal extra-axial fluid collection. There is no territorial infarction. The midline sagittal structures are normal. VENTRICLES: The ventricles are normal in size, shape and configuration. CALVARIUM: There is no calvarial fracture or extracranial soft tissue swelling. There is mild hyperostosis frontalis interna. PARANASAL SINUSES: Predominantly clear. MASTOID AIR CELLS: Predominantly clear. OTHER FINDINGS: None. IMPRESSION: No acute intracranial abnormality. Mild chronic microangiopathic changes. Asymmetric low density area in the left anterior limb of internal capsule could represent an age indeterminate infarction or focal chronic microangiopathic changes.
--- NOTE | 2018-06-04 17:59 | CP.PCM.PN ---
Subjective - Date & Time of Evaluation Date of Evaluation: 06/04/18 Time of Evaluation: 17:59 Objective - Vital Signs/Intake and Output Vital Signs (last 24 hours): Temp Pulse Resp BP Pulse Ox 97.4 F L 73 20 167/84 H 96 06/04/18 16:33 06/04/18 16:33 06/04/18 16:33 06/04/18 16:33 06/04/18 16:33 Intake and Output: 06/04/18 06/04/18 06:59 18:59 Intake Total 1850 Balance 1850 - Medications Medications: Current Medications Albuterol/Ipratropium (Duoneb 3 Mg/0.5 Mg (3 Ml) Ud) 3 ml INH RQ6 PRN PRN Reason: Shortness of Breath Enoxaparin Sodium (Lovenox) 40 mg SC DAILY [facility] Last Admin: 06/04/18 11:14 Dose: 40 mg Metronidazole (Flagyl) 500 mg in 100 mls @ 100 mls/hr IVPB Q8H [facility]; Protocol Last Admin: 06/04/18 12:26 Dose: Not Given Ciprofloxacin (Cipro 400mg/200ml Dsw) 400 mg in 200 mls @ 133 mls/hr IVPB Q12H [facility]; Protocol Last Admin: 06/04/18 11:08 Dose: 133 mls/hr Potassium Chloride 20 meq/ (Sodium Chloride) 1,010 mls @ 100 mls/hr IV .Q10H6M [facility] Last Admin: 06/04/18 11:10 Dose: Not Given Folic Acid 1 mg/ Sodium (Chloride) 100.2 mls @ 60 mls/hr IV DAILY [facility] Last Admin: 06/04/18 12:24 Dose: 60 mls/hr Magnesium Oxide (Mag-Ox) 400 mg PO BID [facility] Stop: 06/06/18 18:01 Last Admin: 06/04/18 15:57 Dose: Not Given Nebivolol (Bystolic) 5 mg PO DAILY [facility] Last Admin: 06/04/18 15:55 Dose: Not Given Ondansetron HCl (Zofran Inj) 4 mg IVP Q6 PRN PRN Reason: Nausea/Vomiting Last Admin: 06/03/18 21:53 Dose: 4 mg Pantoprazole Sodium (Protonix Inj) 40 mg IVP DAILY [facility] Last Admin: 06/04/18 12:23 Dose: 40 mg Rosuvastatin Calcium (Crestor) 10 mg PO HS [facility] Last Admin: 06/03/18 21:53 Dose: 10 mg - Labs Labs: 06/03/18 12:11 06/04/18 07:46
[2018-06-05] MEDS: metroNIDAZOLE IV 500 mg/100 ml 500 MG/100 ML BAG IVPB SCH ×3 (02:59→19:41)
[2018-06-05 06:09] LABS: BASO % 0.9 % (0.0-2.0); EOS # 0.4 K/uL (0.0-0.7); EOS % 9.9 % (0.0-4.0); HEMOGLOBIN 10.7 g/dL (11.0-16.0); LYMPH # 1.2 K/uL (1.0-4.3); LYMPH % 29.3 % (20.0-40.0); MEAN CELL VOLUME 80.3 fL (81.0-99.0); MEAN CORPUSCULAR HGB CONC 32.4 g/dL (33.0-37.0); MONO # 0.4 K/uL (0.0-0.8); MONO % 10.2 % (0.0-10.0); NEUT % 49.7 % (50.0-75.0); NRBC % 0.1 % (0.0-2.0); RBC 4.11 Mil/uL (3.80-5.20); RED CELL DISTRIBUTION WIDTH 14.8 % (11.5-14.5); WHITE BLOOD COUNT 4.1 K/uL (4.8-10.8)
[2018-06-05 06:30] LABS: ALB/GLOB RATIO 1.1 (1.0-2.1); CALCIUM 8.1 mg/dl (8.6-10.4)
[2018-06-05] MEDS ORDERED: Propofol 10 mg/ml Inj (20 ML) ONE (07:59)
[2018-06-05] MEDS ORDERED: Succinylcholine Chloride 20 mg/ml Syr (5 ml) IV ONE (08:00)
[2018-06-05] MEDS ORDERED: Albuterol HFA 90 mcg/actuation (8 g) ONE (08:10)
[2018-06-05] MEDS ORDERED: Atropine 0.4 mg/ml Inj (1 mL) ONE (08:36)
[2018-06-05] MEDS: Magnesium Sulfate 1 gm in D5W 1 GM/100 ML BAG IVPB SCH ×2 (10:43→11:31)
[2018-06-05] MEDS: Magnesium Oxide 400 mg Tab UD PO SCH ×2 (10:48→18:52)
[2018-06-05] MEDS: Ciprofloxacin 400mg/200ml D5W 400 MG/200 ML BAG IVPB SCH ×2 (10:49→22:03)
--- NOTE | 2018-06-05 14:02 | CP.PCM.PN ---
Subjective - Date & Time of Evaluation Date of Evaluation: 06/05/18 Time of Evaluation: 14:02 Objective - Vital Signs/Intake and Output Vital Signs (last 24 hours): Temp Pulse Resp BP Pulse Ox 98.5 F 72 20 119/67 99 06/05/18 09:35 06/05/18 09:35 06/05/18 09:35 06/05/18 09:35 06/05/18 09:35 Intake and Output: 06/05/18 06/05/18 06:59 18:59 Intake Total 830 200 Balance 830 200 - Medications Medications: Current Medications Albuterol/Ipratropium (Duoneb 3 Mg/0.5 Mg (3 Ml) Ud) 3 ml INH RQ6 PRN PRN Reason: Shortness of Breath Enoxaparin Sodium (Lovenox) 40 mg SC DAILY [facility] Last Admin: 06/04/18 11:14 Dose: 40 mg Metronidazole (Flagyl) 500 mg in 100 mls @ 100 mls/hr IVPB Q8H [facility]; Protocol Last Admin: 06/05/18 12:28 Dose: 100 mls/hr Ciprofloxacin (Cipro 400mg/200ml Dsw) 400 mg in 200 mls @ 133 mls/hr IVPB Q12H [facility]; Protocol Last Admin: 06/05/18 10:49 Dose: 133 mls/hr Potassium Chloride 20 meq/ (Sodium Chloride) 1,010 mls @ 100 mls/hr IV .Q10H6M [facility] Last Admin: 06/05/18 05:48 Dose: 100 mls/hr Folic Acid 1 mg/ Sodium (Chloride) 100.2 mls @ 60 mls/hr IV DAILY [facility] Last Admin: 06/05/18 10:55 Dose: 60 mls/hr Magnesium Oxide (Mag-Ox) 400 mg PO BID [facility] Stop: 06/06/18 18:01 Last Admin: 06/05/18 10:48 Dose: 400 mg Metoclopramide HCl (Reglan) 10 mg IVP ACHS [facility] Last Admin: 06/05/18 11:32 Dose: 10 mg Nebivolol (Bystolic) 5 mg PO DAILY [facility] Last Admin: 06/05/18 11:24 Dose: Not Given Pantoprazole Sodium (Protonix Inj) 40 mg IVP DAILY [facility] Last Admin: 06/05/18 10:50 Dose: 40 mg Rosuvastatin Calcium (Crestor) 10 mg PO HS [facility] Last Admin: 06/04/18 22:00 Dose: Not Given - Labs Labs: 06/05/18 06:01 06/05/18 06:01
[2018-06-06] MEDS: metroNIDAZOLE IV 500 mg/100 ml 500 MG/100 ML BAG IVPB SCH ×3 (03:55→19:46)
[2018-06-06] MEDS: Magnesium Oxide 400 mg Tab UD PO SCH ×2 (10:06→18:55)
[2018-06-06] MEDS: Ciprofloxacin 400mg/200ml D5W 400 MG/200 ML BAG IVPB SCH ×2 (11:41→21:55)
--- NOTE | 2018-06-06 15:33 | CP.PCM.PN ---
Subjective - Date & Time of Evaluation Date of Evaluation: 06/06/18 Time of Evaluation: 15:31 - Subjective Subjective: Patient states that she has not vomited today. She is tolerating a clear liquid diet. She had two bowel movements today, one formed an done loose. Objective - Vital Signs/Intake and Output Vital Signs (last 24 hours): Temp Pulse Resp BP Pulse Ox 98.6 F 66 20 144/81 95 06/06/18 07:43 06/06/18 07:43 06/06/18 07:43 06/06/18 07:43 06/06/18 07:43 Intake and Output: 06/06/18 06/06/18 06:59 18:59 Intake Total 1100 800 Balance 1100 800 - Medications Medications: Current Medications Albuterol/Ipratropium (Duoneb 3 Mg/0.5 Mg (3 Ml) Ud) 3 ml INH RQ6 PRN PRN Reason: Shortness of Breath Enoxaparin Sodium (Lovenox) 40 mg SC DAILY [facility] Last Admin: 06/04/18 11:14 Dose: 40 mg Metronidazole (Flagyl) 500 mg in 100 mls @ 100 mls/hr IVPB Q8H [facility]; Protocol Last Admin: 06/06/18 12:44 Dose: 100 mls/hr Ciprofloxacin (Cipro 400mg/200ml Dsw) 400 mg in 200 mls @ 133 mls/hr IVPB Q12H [facility]; Protocol Last Admin: 06/06/18 11:41 Dose: 133 mls/hr Potassium Chloride 20 meq/ (Sodium Chloride) 1,010 mls @ 100 mls/hr IV .Q10H6M [facility] Last Admin: 06/06/18 12:06 Dose: 100 mls/hr Folic Acid 1 mg/ Sodium (Chloride) 100.2 mls @ 60 mls/hr IV DAILY [facility] Last Admin: 06/06/18 10:06 Dose: 60 mls/hr Magnesium Oxide (Mag-Ox) 400 mg PO BID [facility] Stop: 06/06/18 18:01 Last Admin: 06/06/18 10:06 Dose: 400 mg Metoclopramide HCl (Reglan) 10 mg IVP ACHS [facility] Last Admin: 06/06/18 11:41 Dose: 10 mg Nebivolol (Bystolic) 5 mg PO DAILY [facility] Last Admin: 06/06/18 10:06 Dose: 5 mg Pantoprazole Sodium (Protonix Inj) 40 mg IVP DAILY [facility] Last Admin: 06/06/18 10:06 Dose: 40 mg Rosuvastatin Calcium (Crestor) 10 mg PO HS [facility] Last Admin: 06/05/18 22:02 Dose: 10 mg - Labs Labs: 06/05/18 06:01 06/05/18 06:01 - Constitutional Appears: No Acute Distress - Head Exam Head Exam: ATRAUMATIC, NORMOCEPHALIC - Eye Exam Eye Exam: EOMI, PERRL - Neck Exam Neck Exam: absent: Lymphadenopathy, Thyromegaly - Respiratory Exam Respiratory Exam: NORMAL BREATHING PATTERN. absent: Rales, Rhonchi, Wheezes - Cardiovascular Exam Cardiovascular Exam: REGULAR RHYTHM, +S1, +S2. absent: Gallop, Rubs, Murmur - GI/Abdominal Exam GI & Abdominal Exam: Soft, Normal Bowel Sounds. absent: Tenderness, Mass, Organomegaly - Rectal Exam Rectal Exam: Deferred - Extremities Exam Extremities Exam: absent: Calf Tenderness, Pedal Edema Assessment and Plan (1) Nausea and vomiting Assessment & Plan: Nausea and vomiting have improved on Reglan. Will advance diet and reschedule gastric emptying scan. Status: Acute
--- NOTE | 2018-06-06 18:03 | CP.PCM.PN ---
Subjective - Date & Time of Evaluation Date of Evaluation: 06/06/18 Time of Evaluation: 18:03 Objective - Vital Signs/Intake and Output Vital Signs (last 24 hours): Temp Pulse Resp BP Pulse Ox 99.0 F 78 20 157/91 H 96 06/06/18 16:25 06/06/18 16:25 06/06/18 16:25 06/06/18 16:25 06/06/18 16:25 Intake and Output: 06/06/18 06/06/18 06:59 18:59 Intake Total 1100 800 Balance 1100 800 - Medications Medications: Current Medications Albuterol/Ipratropium (Duoneb 3 Mg/0.5 Mg (3 Ml) Ud) 3 ml INH RQ6 PRN PRN Reason: Shortness of Breath Enoxaparin Sodium (Lovenox) 40 mg SC DAILY [facility] Last Admin: 06/04/18 11:14 Dose: 40 mg Metronidazole (Flagyl) 500 mg in 100 mls @ 100 mls/hr IVPB Q8H [facility]; Protocol Last Admin: 06/06/18 12:44 Dose: 100 mls/hr Ciprofloxacin (Cipro 400mg/200ml Dsw) 400 mg in 200 mls @ 133 mls/hr IVPB Q12H [facility]; Protocol Last Admin: 06/06/18 11:41 Dose: 133 mls/hr Potassium Chloride 20 meq/ (Sodium Chloride) 1,010 mls @ 100 mls/hr IV .Q10H6M [facility] Last Admin: 06/06/18 12:06 Dose: 100 mls/hr Folic Acid 1 mg/ Sodium (Chloride) 100.2 mls @ 60 mls/hr IV DAILY [facility] Last Admin: 06/06/18 10:06 Dose: 60 mls/hr Metoclopramide HCl (Reglan) 10 mg IVP ACHS [facility] Last Admin: 06/06/18 16:36 Dose: 10 mg Nebivolol (Bystolic) 5 mg PO DAILY [facility] Last Admin: 06/06/18 10:06 Dose: 5 mg Pantoprazole Sodium (Protonix Inj) 40 mg IVP DAILY [facility] Last Admin: 06/06/18 10:06 Dose: 40 mg Rosuvastatin Calcium (Crestor) 10 mg PO HS [facility] Last Admin: 06/05/18 22:02 Dose: 10 mg - Labs Labs: 06/05/18 06:01 06/05/18 06:01
[2018-06-07] MEDS: metroNIDAZOLE IV 500 mg/100 ml 500 MG/100 ML BAG IVPB SCH ×3 (04:00→19:52)
[2018-06-07 08:09] LABS: BASO % 0.7 % (0.0-2.0); EOS # 0.4 K/uL (0.0-0.7); EOS % 8.4 % (0.0-4.0); HEMOGLOBIN 11.8 g/dL (11.0-16.0); LYMPH # 1.5 K/uL (1.0-4.3); LYMPH % 28.9 % (20.0-40.0); MEAN CELL VOLUME 80.4 fL (81.0-99.0); MEAN CORPUSCULAR HEMOGLOBIN 26.2 pg (27.0-31.0); MEAN CORPUSCULAR HGB CONC 32.5 g/dL (33.0-37.0); MEAN PLATELET VOLUME 8.8 fL (7.2-11.7); MONO # 0.6 K/uL (0.0-0.8); NEUT # 2.6 K/uL (1.8-7.0); NRBC % 0.1 % (0.0-2.0); RBC 4.51 Mil/uL (3.80-5.20); RED CELL DISTRIBUTION WIDTH 14.7 % (11.5-14.5); WHITE BLOOD COUNT 5.2 K/uL (4.8-10.8)
[2018-06-07 08:18] LABS: ALB/GLOB RATIO 1.1 (1.0-2.1); ALBUMIN 3.3 g/dL (3.5-5.0); ALT/SGPT < 6 U/L (9-52); AST/SGOT 18 U/L (14-36); BLOOD UREA NITROGEN 2 mg/dL (7-17); CALCIUM 8.6 mg/dl (8.6-10.4); GFR NON-AFRICAN AMERICAN 45
--- NOTE | 2018-06-07 08:29 | CP.PCM.PN ---
Subjective - Date & Time of Evaluation Date of Evaluation: 06/07/18 Time of Evaluation: 08:26 - Subjective Subjective: Patient denies having nausea, vomiting, abdominal pain. She has not had a bowel movement so far today. She tolerated full liquids last night. Objective - Vital Signs/Intake and Output Vital Signs (last 24 hours): Temp Pulse Resp BP Pulse Ox 98.2 F 80 20 158/90 H 97 06/07/18 00:00 06/07/18 00:00 06/07/18 00:00 06/07/18 00:00 06/07/18 00:00 Intake and Output: 06/07/18 06/07/18 06:59 18:59 Intake Total 1100 Balance 1100 - Medications Medications: Current Medications Albuterol/Ipratropium (Duoneb 3 Mg/0.5 Mg (3 Ml) Ud) 3 ml INH RQ6 PRN PRN Reason: Shortness of Breath Enoxaparin Sodium (Lovenox) 40 mg SC DAILY [facility] Last Admin: 06/04/18 11:14 Dose: 40 mg Metronidazole (Flagyl) 500 mg in 100 mls @ 100 mls/hr IVPB Q8H [facility]; Protocol Last Admin: 06/07/18 04:00 Dose: Not Given Ciprofloxacin (Cipro 400mg/200ml Dsw) 400 mg in 200 mls @ 133 mls/hr IVPB Q12H [facility]; Protocol Last Admin: 06/06/18 21:55 Dose: 133 mls/hr Potassium Chloride 20 meq/ (Sodium Chloride) 1,010 mls @ 100 mls/hr IV .Q10H6M [facility] Last Admin: 06/06/18 22:21 Dose: 100 mls/hr Folic Acid 1 mg/ Sodium (Chloride) 100.2 mls @ 60 mls/hr IV DAILY [facility] Last Admin: 06/06/18 10:06 Dose: 60 mls/hr Metoclopramide HCl (Reglan) 10 mg IVP ACHS [facility] Last Admin: 06/06/18 21:45 Dose: 10 mg Nebivolol (Bystolic) 5 mg PO DAILY [facility] Last Admin: 06/06/18 10:06 Dose: 5 mg Pantoprazole Sodium (Protonix Inj) 40 mg IVP DAILY [facility] Last Admin: 06/06/18 10:06 Dose: 40 mg Rosuvastatin Calcium (Crestor) 10 mg PO HS [facility] Last Admin: 06/06/18 21:45 Dose: 10 mg - Labs Labs: 06/07/18 07:47 06/07/18 07:47 - Constitutional Appears: No Acute Distress - Head Exam Head Exam: ATRAUMATIC, NORMOCEPHALIC - Eye Exam Eye Exam: EOMI, PERRL - Neck Exam Neck Exam: absent: Lymphadenopathy, Thyromegaly - Respiratory Exam Respiratory Exam: NORMAL BREATHING PATTERN. absent: Rales, Rhonchi, Wheezes - Cardiovascular Exam Cardiovascular Exam: REGULAR RHYTHM, +S1, +S2. absent: Gallop, Rubs, Murmur - GI/Abdominal Exam GI & Abdominal Exam: Soft, Normal Bowel Sounds. absent: Tenderness, Mass, Organomegaly - Rectal Exam Rectal Exam: Deferred - Extremities Exam Extremities Exam: absent: Calf Tenderness, Pedal Edema Assessment and Plan (1) Nausea and vomiting Assessment & Plan: Nausea and vomiting have improved after starting Reglan. Will attempt gastric emptying scan today. Advance diet as tolerated. Status: Acute
[2018-06-07] MEDS: Magnesium Sulfate 1 gm in D5W 1 GM/100 ML BAG IVPB SCH ×2 (09:24→10:39)
[2018-06-07] MEDS: Ciprofloxacin 400mg/200ml D5W 400 MG/200 ML BAG IVPB SCH ×2 (10:00→22:10)
[2018-06-07] MEDS ORDERED: Magnesium Sulfate 1 gm in D5W 1 GM/100 ML BAG IVPB SCH (13:30)
--- NOTE | 2018-06-07 17:44 | CP.PCM.PN ---
Subjective - Date & Time of Evaluation Date of Evaluation: 06/07/18 Time of Evaluation: 17:44 Objective - Vital Signs/Intake and Output Vital Signs (last 24 hours): Temp Pulse Resp BP Pulse Ox 97.6 F 82 20 154/86 H 96 06/07/18 16:26 06/07/18 16:26 06/07/18 16:26 06/07/18 16:26 06/07/18 16:26 Intake and Output: 06/07/18 06/07/18 06:59 18:59 Intake Total 1100 600 Balance 1100 600 - Medications Medications: Current Medications Albuterol/Ipratropium (Duoneb 3 Mg/0.5 Mg (3 Ml) Ud) 3 ml INH RQ6 PRN PRN Reason: Shortness of Breath Enoxaparin Sodium (Lovenox) 40 mg SC DAILY [facility] Last Admin: 06/04/18 11:14 Dose: 40 mg Metronidazole (Flagyl) 500 mg in 100 mls @ 100 mls/hr IVPB Q8H [facility]; Protocol Last Admin: 06/07/18 13:00 Dose: 100 mls/hr Ciprofloxacin (Cipro 400mg/200ml Dsw) 400 mg in 200 mls @ 133 mls/hr IVPB Q12H [facility]; Protocol Last Admin: 06/07/18 10:00 Dose: Not Given Folic Acid 1 mg/ Sodium (Chloride) 100.2 mls @ 60 mls/hr IV DAILY [facility] Last Admin: 06/07/18 10:00 Dose: Not Given Potassium Chloride 20 meq/ (Sodium Chloride) 1,010 mls @ 70 mls/hr IV .[id number] [facility] Last Admin: 06/07/18 13:05 Dose: 70 mls/hr Metoclopramide HCl (Reglan) 10 mg IVP ACHS [facility] Last Admin: 06/07/18 17:01 Dose: Not Given Nebivolol (Bystolic) 5 mg PO DAILY [facility] Last Admin: 06/07/18 09:15 Dose: 5 mg Pantoprazole Sodium (Protonix Inj) 40 mg IVP DAILY [facility] Last Admin: 06/07/18 10:40 Dose: 40 mg Rosuvastatin Calcium (Crestor) 10 mg PO HS [facility] Last Admin: 06/06/18 21:45 Dose: 10 mg - Labs Labs: 06/07/18 07:47 06/07/18 07:47
[2018-06-08] MEDS: metroNIDAZOLE IV 500 mg/100 ml 500 MG/100 ML BAG IVPB SCH ×3 (04:03→19:37)
[2018-06-08] MEDS: Ciprofloxacin 400mg/200ml D5W 400 MG/200 ML BAG IVPB SCH ×2 (10:16→21:19)
--- NOTE | 2018-06-08 10:58 | CP.PCM.PN ---
Subjective - Date & Time of Evaluation Date of Evaluation: 06/08/18 Time of Evaluation: 10:56 - Subjective Subjective: Patient was again unable to tolerate the test meal for the Gastric Emptying Scan yesterday. She has mild nausea, but she has not vomited in the past two days. She denies having abdominal pain. She has not had a bowel movement so far t [place]. Objective - Vital Signs/Intake and Output Vital Signs (last 24 hours): Temp Pulse Resp BP Pulse Ox 98 F 97 H 20 146/94 H 96 06/08/18 07:42 06/08/18 07:42 06/08/18 07:42 06/08/18 10:14 06/08/18 07:42 Intake and Output: 06/08/18 06/08/18 06:59 18:59 Intake Total 1700 Balance 1700 - Medications Medications: Current Medications Amlodipine Besylate (Norvasc) 5 mg PO DAILY [facility] Last Admin: 06/08/18 10:14 Dose: 5 mg Enoxaparin Sodium (Lovenox) 40 mg SC DAILY [facility] Last Admin: 06/04/18 11:14 Dose: 40 mg Metronidazole (Flagyl) 500 mg in 100 mls @ 100 mls/hr IVPB Q8H [facility]; Protocol Last Admin: 06/08/18 04:03 Dose: 100 mls/hr Ciprofloxacin (Cipro 400mg/200ml Dsw) 400 mg in 200 mls @ 133 mls/hr IVPB Q12H [facility]; Protocol Last Admin: 06/08/18 10:16 Dose: 133 mls/hr Folic Acid 1 mg/ Sodium (Chloride) 100.2 mls @ 60 mls/hr IV DAILY [facility] Last Admin: 06/07/18 10:00 Dose: Not Given Potassium Chloride 20 meq/ (Sodium Chloride) 1,010 mls @ 70 mls/hr IV .[id number] [facility] Last Admin: 06/08/18 04:08 Dose: Not Given Metoclopramide HCl (Reglan) 10 mg IVP ACHS [facility] Last Admin: 06/08/18 08:16 Dose: Not Given Metoprolol Tartrate (Lopressor) 25 mg PO BID [facility] Last Admin: 06/08/18 10:14 Dose: 25 mg Nebivolol (Bystolic) 5 mg PO DAILY [facility] Last Admin: 03/23/19 10:14 Dose: 5 mg Pantoprazole Sodium (Protonix Inj) 40 mg IVP DAILY [facility] Last Admin: 06/08/18 10:14 Dose: 40 mg Rosuvastatin Calcium (Crestor) 10 mg PO HS [facility] Last Admin: 06/07/18 22:08 Dose: 10 mg - Labs Labs: 06/07/18 07:47 06/07/18 07:47 - Constitutional Appears: No Acute Distress - Head Exam Head Exam: ATRAUMATIC, NORMOCEPHALIC - Eye Exam Eye Exam: EOMI, PERRL - Neck Exam Neck Exam: absent: Lymphadenopathy, Thyromegaly - Respiratory Exam Respiratory Exam: NORMAL BREATHING PATTERN. absent: Rales, Rhonchi, Wheezes - Cardiovascular Exam Cardiovascular Exam: REGULAR RHYTHM, +S1, +S2. absent: Gallop, Rubs, Murmur - GI/Abdominal Exam GI & Abdominal Exam: Soft, Normal Bowel Sounds. absent: Tenderness, Mass, Organomegaly - Rectal Exam Rectal Exam: Deferred - Extremities Exam Extremities Exam: absent: Calf Tenderness, Pedal Edema Assessment and Plan (1) Nausea and vomiting Assessment & Plan: Patient now has only mild nausea but no vomiting. She is refusing Reglan because of dizziness. Erythromycin is contraindicated because of amlodipine. She has been able to tolerate small portions of solid food. Will request calorie count. Status: Acute
[2018-06-08] MEDS ORDERED: D5W IV SCH (14:45)
[2018-06-08] MEDS ORDERED: POTASSIUM CH IV SCH (14:45)
[2018-06-08] MEDS ORDERED: SODIUM CHLORIDE IV SCH (14:45)
--- NOTE | 2018-06-08 16:52 | CP.PCM.PN ---
Objective - Vital Signs/Intake and Output Vital Signs (last 24 hours): Temp Pulse Resp BP Pulse Ox 97.6 F 79 20 139/81 96 06/08/18 16:00 06/08/18 16:00 06/08/18 16:00 06/08/18 16:00 06/08/18 16:00 Intake and Output: 06/08/18 06/08/18 06:59 18:59 Intake Total 1700 800 Balance 1700 800 - Medications Medications: Current Medications Amlodipine Besylate (Norvasc) 10 mg PO DAILY [facility] Enoxaparin Sodium (Lovenox) 40 mg SC DAILY [facility] Last Admin: 06/04/18 11:14 Dose: 40 mg Folic Acid (Folic Acid) 1 mg PO DAILY [facility] Last Admin: 06/08/18 14:02 Dose: 1 mg Metronidazole (Flagyl) 500 mg in 100 mls @ 100 mls/hr IVPB Q8H [facility]; Protocol Last Admin: 06/08/18 12:19 Dose: 100 mls/hr Ciprofloxacin (Cipro 400mg/200ml Dsw) 400 mg in 200 mls @ 133 mls/hr IVPB Q12H [facility]; Protocol Last Admin: 06/08/18 10:16 Dose: 133 mls/hr Potassium Chloride 20 meq/ (Sodium Chloride) 1,010 mls @ 70 mls/hr IV .[id number] [facility] Last Admin: 06/08/18 15:19 Dose: Not Given Meclizine HCl (Antivert) 25 mg PO Q8H PRN PRN Reason: Dizziness Metoclopramide HCl (Reglan) 10 mg IVP ACHS [facility] Last Admin: 06/08/18 12:19 Dose: 10 mg Nebivolol (Bystolic) 10 mg PO DAILY [facility] Pantoprazole Sodium (Protonix Inj) 40 mg IVP DAILY [facility] Last Admin: 06/08/18 10:14 Dose: 40 mg Rosuvastatin Calcium (Crestor) 10 mg PO HS [facility] Last Admin: 06/07/18 22:08 Dose: 10 mg - Labs Labs: 06/07/18 07:47 06/07/18 07:47
[2018-06-08 17:08] LABS: CALCIUM 8.8 mg/dl (8.6-10.4)
[2018-06-09] MEDS: metroNIDAZOLE IV 500 mg/100 ml 500 MG/100 ML BAG IVPB SCH (03:18)
--- NOTE | 2018-06-09 10:20 | CP.PCM.PN ---
Subjective - Date & Time of Evaluation Date of Evaluation: 06/09/18 Time of Evaluation: 10:17 - Subjective Subjective: Patient had an episode of vomiting yesterday, but was able to tolerated lunch, dinner yesterday, and breakfast today. She denies having abdominal pain. She has not had a bowel movement so far today. Objective - Vital Signs/Intake and Output Vital Signs (last 24 hours): Temp Pulse Resp BP Pulse Ox 98.8 F 89 20 123/70 97 06/09/18 07:53 06/09/18 07:53 06/09/18 07:53 06/09/18 07:53 06/09/18 07:53 Intake and Output: 06/09/18 06/09/18 06:59 18:59 Intake Total 1390 Output Total 0 Balance 1390 - Medications Medications: Current Medications Amlodipine Besylate (Norvasc) 10 mg PO DAILY [facility] Enoxaparin Sodium (Lovenox) 40 mg SC DAILY [facility] Last Admin: 06/04/18 11:14 Dose: 40 mg Folic Acid (Folic Acid) 1 mg PO DAILY [facility] Last Admin: 06/08/18 14:02 Dose: 1 mg Metronidazole (Flagyl) 500 mg in 100 mls @ 100 mls/hr IVPB Q8H [facility]; Protocol Last Admin: 06/09/18 03:18 Dose: 100 mls/hr Ciprofloxacin (Cipro 400mg/200ml Dsw) 400 mg in 200 mls @ 133 mls/hr IVPB Q12H [facility]; Protocol Last Admin: 06/08/18 21:19 Dose: 133 mls/hr Potassium Chloride 20 meq/ (Sodium Chloride) 1,010 mls @ 70 mls/hr IV .[id number] [facility] Last Admin: 06/08/18 18:38 Dose: 70 mls/hr Meclizine HCl (Antivert) 25 mg PO Q8H PRN PRN Reason: Dizziness Last Admin: 06/08/18 17:18 Dose: 25 mg Nebivolol (Bystolic) 10 mg PO DAILY [facility] Pantoprazole Sodium (Protonix Inj) 40 mg IVP DAILY [facility] Last Admin: 06/08/18 10:14 Dose: 40 mg Rosuvastatin Calcium (Crestor) 10 mg PO HS [facility] Last Admin: 06/08/18 21:19 Dose: 10 mg - Labs Labs: 06/07/18 07:47 06/08/18 16:50 - Constitutional Appears: No Acute Distress - Head Exam Head Exam: ATRAUMATIC, NORMOCEPHALIC - Eye Exam Eye Exam: EOMI, PERRL - Neck Exam Neck Exam: absent: Lymphadenopathy, Thyromegaly - Respiratory Exam Respiratory Exam: NORMAL BREATHING PATTERN. absent: Rales, Rhonchi, Wheezes - Cardiovascular Exam Cardiovascular Exam: REGULAR RHYTHM, +S1, +S2. absent: Gallop, Rubs, Murmur - GI/Abdominal Exam GI & Abdominal Exam: Soft, Normal Bowel Sounds. absent: Tenderness, Mass, Organomegaly - Rectal Exam Rectal Exam: Deferred - Extremities Exam Extremities Exam: absent: Calf Tenderness, Pedal Edema Assessment and Plan (1) Nausea and vomiting Assessment & Plan: Patient had one episode of vomiting yesterday, but was able to tolerate all meals after lunch yesterday. Will check results of calorie count. Consider low dose (5 mg) Reglan. Status: Acute
[2018-06-09] MEDS: Ciprofloxacin 400mg/200ml D5W 400 MG/200 ML BAG IVPB SCH (10:47)
[2018-06-09 14:23] LABS: CALCIUM 8.4 mg/dl (8.6-10.4)
[2018-06-09] MEDS ORDERED: Potassium Chloride 20 mEq ER Tab PO ONE (16:23)
--- NOTE | 2018-06-09 16:49 | CP.PCM.PN ---
Subjective - Date & Time of Evaluation Date of Evaluation: 06/09/18 Time of Evaluation: 16:49 Objective - Vital Signs/Intake and Output Vital Signs (last 24 hours): Temp Pulse Resp BP Pulse Ox 98.8 F 89 20 123/70 97 06/09/18 07:53 06/09/18 07:53 06/09/18 07:53 06/09/18 07:53 06/09/18 07:53 Intake and Output: 06/09/18 06/09/18 06:59 18:59 Intake Total 1390 Output Total 0 Balance 1390 - Medications Medications: Current Medications Amlodipine Besylate (Norvasc) 10 mg PO DAILY [facility] Last Admin: 06/09/18 10:47 Dose: 10 mg Enoxaparin Sodium (Lovenox) 40 mg SC DAILY [facility] Last Admin: 06/04/18 11:14 Dose: 40 mg Folic Acid (Folic Acid) 1 mg PO DAILY [facility] Last Admin: 06/09/18 10:47 Dose: 1 mg Meclizine HCl (Antivert) 25 mg PO Q8H PRN PRN Reason: Dizziness Last Admin: 06/09/18 10:47 Dose: 25 mg Metoclopramide HCl (Reglan) 5 mg PO 0600,1130,1630,2200 PRN PRN Reason: Nausea/Vomiting Nebivolol (Bystolic) 10 mg PO DAILY [facility] Last Admin: 06/09/18 10:47 Dose: 10 mg Pantoprazole Sodium (Protonix Inj) 40 mg IVP DAILY [facility] Last Admin: 06/09/18 10:45 Dose: 40 mg Rosuvastatin Calcium (Crestor) 10 mg PO HS [facility] Last Admin: 06/08/18 21:19 Dose: 10 mg - Labs Labs: 06/07/18 07:47 06/09/18 13:55
[2018-06-10 07:54] LABS: CALCIUM 7.9 mg/dl (8.6-10.4)
--- NOTE | 2018-06-10 10:22 | CP.PCM.PN ---
Subjective - Date & Time of Evaluation Date of Evaluation: 06/10/18 Time of Evaluation: 10:20 - Subjective Subjective: Patient denies having nausea, vomiting and diarrhea. She complains of dizziness and frequent urination. Objective - Vital Signs/Intake and Output Vital Signs (last 24 hours): Temp Pulse Resp BP Pulse Ox 96.4 F L 87 16 121/67 99 06/10/18 00:31 06/10/18 00:31 06/10/18 00:31 06/10/18 00:31 06/10/18 00:31 Intake and Output: 06/10/18 06/10/18 06:59 18:59 Intake Total 200 Balance 200 - Medications Medications: Current Medications Amlodipine Besylate (Norvasc) 10 mg PO DAILY [facility] Last Admin: 06/09/18 10:47 Dose: 10 mg Enoxaparin Sodium (Lovenox) 40 mg SC DAILY [facility] Last Admin: 06/04/18 11:14 Dose: 40 mg Folic Acid (Folic Acid) 1 mg PO DAILY [facility] Last Admin: 06/09/18 10:47 Dose: 1 mg Meclizine HCl (Antivert) 25 mg PO Q8H PRN PRN Reason: Dizziness Last Admin: 06/09/18 10:47 Dose: 25 mg Nebivolol (Bystolic) 10 mg PO DAILY [facility] Last Admin: 06/09/18 10:47 Dose: 10 mg Pantoprazole Sodium (Protonix Inj) 40 mg IVP DAILY [facility] Last Admin: 06/09/18 10:45 Dose: 40 mg Rosuvastatin Calcium (Crestor) 10 mg PO HS [facility] Last Admin: 06/09/18 22:18 Dose: 10 mg - Labs Labs: 06/07/18 07:47 06/10/18 07:17 - Constitutional Appears: No Acute Distress - Head Exam Head Exam: ATRAUMATIC, NORMOCEPHALIC - Neck Exam Neck Exam: absent: Lymphadenopathy, Thyromegaly - Respiratory Exam Respiratory Exam: NORMAL BREATHING PATTERN. absent: Rales, Rhonchi, Wheezes - Cardiovascular Exam Cardiovascular Exam: REGULAR RHYTHM, +S1, +S2. absent: Gallop, Rubs, Murmur - GI/Abdominal Exam GI & Abdominal Exam: Soft, Normal Bowel Sounds. absent: Tenderness, Mass, Organomegaly - Rectal Exam Rectal Exam: Deferred - Extremities Exam Extremities Exam: absent: Calf Tenderness, Pedal Edema Assessment and Plan (1) Nausea and vomiting Assessment & Plan: The nausea and vomiting have improved, and she is eating better. She has not had diarrhea in the past 24 hours. Will continue regular diet. Status: Acute
[2018-06-10] MEDS: Magnesium Sulfate 1 gm in D5W 1 GM/100 ML BAG IVPB SCH (14:12)
[2018-06-10 14:38] LABS: SQUAMOUS EPITHIAL 10 /hpf (0-5); URINE BACTERIA RARE (<OCC); URINE BILIRUBIN NEGATIVE (NEGATIVE); URINE BLOOD NEGATIVE (NEGATIVE); URINE CLARITY Hazy (Clear); URINE COLOR Amber (YELLOW); URINE GLUCOSE (UA) NORMAL (Normal); URINE LEUKOCYTE ESTERASE TRACE Leu/uL (Negative); URINE PROTEIN NEGATIVE (NEGATIVE); URINE UROBILINOGEN NORMAL mg/dL (0.2-1.0)
[2018-06-10] MEDS: Magnesium Oxide 400 mg Tab UD PO SCH ×2 (14:55→21:12)
[2018-06-10] MEDS: Pantoprazole 40 mg EC Tab PO SCH (14:55)
[2018-06-10 16:26] LABS: STOOL SODIUM 39.8 mEq/L
--- NOTE | 2018-06-10 18:39 | CP.PCM.PN ---
Objective - Vital Signs/Intake and Output Vital Signs (last 24 hours): Temp Pulse Resp BP Pulse Ox 98.7 F 86 20 124/76 95 06/10/18 16:00 06/10/18 16:00 06/10/18 16:00 06/10/18 16:00 06/10/18 16:00 Intake and Output: 06/10/18 06/10/18 06:59 18:59 Intake Total 600 Balance 600 - Medications Medications: Current Medications Amlodipine Besylate (Norvasc) 10 mg PO DAILY [facility] Last Admin: 06/10/18 11:01 Dose: 10 mg Colchicine (Colocrys) 0.6 mg PO BID [facility] Last Admin: 06/10/18 17:11 Dose: 0.6 mg Enoxaparin Sodium (Lovenox) 40 mg SC DAILY [facility] Last Admin: 06/04/18 11:14 Dose: 40 mg Folic Acid (Folic Acid) 1 mg PO DAILY [facility] Last Admin: 06/10/18 11:01 Dose: 1 mg Magnesium Oxide (Mag-Ox) 400 mg PO BID [facility] Last Admin: 06/10/18 14:55 Dose: 400 mg Meclizine HCl (Antivert) 25 mg PO Q8H PRN PRN Reason: Dizziness Last Admin: 06/09/18 10:47 Dose: 25 mg Nebivolol (Bystolic) 10 mg PO DAILY [facility] Last Admin: 06/10/18 11:01 Dose: 10 mg Pantoprazole Sodium (Protonix Ec Tab) 40 mg PO DAILY [facility] Last Admin: 06/10/18 14:55 Dose: 40 mg Rosuvastatin Calcium (Crestor) 10 mg PO HS [facility] Last Admin: 06/09/18 22:18 Dose: 10 mg - Labs Labs: 06/07/18 07:47 06/10/18 07:17
[2018-06-11 06:34] LABS: CALCIUM 8.1 mg/dl (8.6-10.4); URIC ACID 8.2 mg/dL (2.2-7.5)
[2018-06-11 07:27] VITALS: RESP 20
[2018-06-11] MEDS: Pantoprazole 40 mg EC Tab PO SCH (09:52)
[2018-06-11] MEDS: Magnesium Oxide 400 mg Tab UD PO SCH ×2 (09:52→17:13)
[2018-06-11] MEDS: Naproxen 550 mg Tab PO SCH ×2 (09:57→17:13)
[2018-06-11] MEDS ORDERED: Potassium Chloride 20 mEq ER Tab PO SCH (10:00)
--- NOTE | 2018-06-11 10:44 | CP.PCM.PN ---
Subjective - Date & Time of Evaluation Date of Evaluation: 06/11/18 Time of Evaluation: 10:42 - Subjective Subjective: Patient again vomited today, one episode. She denies having abdominal pain. She had a formed bowel movement yesterday. She also complains of pain in the right ankle. Objective - Vital Signs/Intake and Output Vital Signs (last 24 hours): Temp Pulse Resp BP Pulse Ox 98.1 F 88 20 137/71 97 06/11/18 07:26 06/11/18 07:26 06/11/18 07:26 06/11/18 07:26 06/11/18 07:26 Intake and Output: 06/11/18 06/11/18 06:59 18:59 Intake Total 120 Balance 120 - Medications Medications: Current Medications Amlodipine Besylate (Norvasc) 10 mg PO DAILY [facility] Last Admin: 06/11/18 09:52 Dose: 10 mg Colchicine (Colocrys) 0.6 mg PO BID [facility] Last Admin: 06/11/18 09:52 Dose: 0.6 mg Enoxaparin Sodium (Lovenox) 40 mg SC DAILY [facility] Last Admin: 06/04/18 11:14 Dose: 40 mg Folic Acid (Folic Acid) 1 mg PO DAILY [facility] Last Admin: 06/11/18 09:52 Dose: 1 mg Magnesium Oxide (Mag-Ox) 400 mg PO BID [facility] Last Admin: 06/11/18 09:52 Dose: 400 mg Meclizine HCl (Antivert) 25 mg PO Q8H PRN PRN Reason: Dizziness Last Admin: 06/09/18 10:47 Dose: 25 mg Naproxen (Anaprox Ds) 550 mg PO BID [facility] Last Admin: 06/11/18 09:57 Dose: 550 mg Nebivolol (Bystolic) 10 mg PO DAILY [facility] Last Admin: 06/11/18 09:53 Dose: 10 mg Pantoprazole Sodium (Protonix Ec Tab) 40 mg PO DAILY [facility] Last Admin: 06/11/18 09:52 Dose: 40 mg Potassium Chloride (K-Dur 20 Meq Er Tab) 40 meq PO Q4H [facility] Stop: 06/11/18 14:01 Last Admin: 06/11/18 09:52 Dose: 40 meq Rosuvastatin Calcium (Crestor) 10 mg PO HS [facility] Last Admin: 06/10/18 21:12 Dose: 10 mg - Labs Labs: 06/07/18 07:47 06/11/18 06:08 - Constitutional Appears: No Acute Distress - Head Exam Head Exam: ATRAUMATIC, NORMOCEPHALIC - Eye Exam Eye Exam: EOMI, PERRL - Neck Exam Neck Exam: absent: Lymphadenopathy, Thyromegaly - Respiratory Exam Respiratory Exam: NORMAL BREATHING PATTERN. absent: Rales, Rhonchi, Wheezes - Cardiovascular Exam Cardiovascular Exam: REGULAR RHYTHM, +S1, +S2. absent: Gallop, Rubs, Murmur - GI/Abdominal Exam GI & Abdominal Exam: Soft, Normal Bowel Sounds. absent: Tenderness, Mass, Organomegaly - Rectal Exam Rectal Exam: Deferred - Extremities Exam Extremities Exam: absent: Pedal Edema Assessment and Plan (1) Nausea and vomiting Assessment & Plan: Patient has recurrent vomiting. Will reorder Zofran PRN. Because of multiple deficiencies of B vitamins, will give IV vitamin supplements. Status: Acute
[2018-06-11] MEDS ORDERED: Sodium Chloride 0.9% 1,000 ML IV SCH (13:45)
[2018-06-11] MEDS ORDERED: Magnesium Sulfate 1 gm in D5W 1 GM/100 ML BAG IVPB SCH (16:00)
--- NOTE | 2018-06-11 17:05 | RAD ---
Date of service: 06/11/2018 HISTORY: fever COMPARISON: No prior. TECHNIQUE: 1 view obtained. FINDINGS: LUNGS: Inspiration shallow. No consolidation appreciated. PLEURA: No significant pleural effusion identified, no pneumothorax apparent. CARDIOVASCULAR: No aortic atherosclerotic calcification present. Normal cardiac size. Allowing for the slight rotation and technique. No pulmonary vascular congestion. OSSEOUS STRUCTURES: Bilateral shoulder arthrosis. Thoracic spondylosis. VISUALIZED UPPER ABDOMEN: Upper quadrant post cholecystectomy clips. Partially visualize are likely lumbar spinal fusion hardware. OTHER FINDINGS: None. IMPRESSION: No acute cardiopulmonary pathology seen. Other findings as above.
--- NOTE | 2018-06-11 18:14 | CP.PCM.PN ---
Subjective - Date & Time of Evaluation Date of Evaluation: 06/11/18 Time of Evaluation: 18:14 Objective - Vital Signs/Intake and Output Vital Signs (last 24 hours): Temp Pulse Resp BP Pulse Ox 101.2 F H 109 H 20 131/83 95 06/11/18 15:31 06/11/18 15:31 06/11/18 15:31 06/11/18 15:31 06/11/18 15:31 Intake and Output: 06/11/18 06/11/18 06:59 18:59 Intake Total 120 Balance 120 - Medications Medications: Current Medications Allopurinol (Zyloprim) 100 mg PO DAILY [facility] Amlodipine Besylate (Norvasc) 10 mg PO DAILY [facility] Last Admin: 06/11/18 09:52 Dose: 10 mg Clopidogrel Bisulfate (Plavix) 75 mg PO DAILY [facility] Colchicine (Colocrys) 0.6 mg PO BID [facility] Last Admin: 06/11/18 17:13 Dose: 0.6 mg Enoxaparin Sodium (Lovenox) 40 mg SC DAILY [facility] Last Admin: 06/04/18 11:14 Dose: 40 mg Famotidine (Pepcid) 20 mg PO DAILY [facility] Folic Acid (Folic Acid) 1 mg PO DAILY [facility] Last Admin: 06/11/18 09:52 Dose: 1 mg Sodium Chloride (Sodium Chloride 0.9%) 1,000 mls @ 80 mls/hr IV .[id number] [facility] Stop: 06/12/18 02:14 Magnesium Oxide (Mag-Ox) 400 mg PO BID [facility] Last Admin: 06/11/18 17:13 Dose: 400 mg Meclizine HCl (Antivert) 25 mg PO Q8H PRN PRN Reason: Dizziness Last Admin: 06/09/18 10:47 Dose: 25 mg Naproxen (Anaprox Ds) 550 mg PO BID [facility] Last Admin: 06/11/18 17:13 Dose: 550 mg Nebivolol (Bystolic) 10 mg PO DAILY [facility] Last Admin: 06/11/18 09:53 Dose: 10 mg Ondansetron HCl (Zofran Tab) 4 mg PO BID PRN PRN Reason: Nausea/Vomiting Prednisone (Prednisone Tab) 10 mg PO DAILY [facility] Rosuvastatin Calcium (Crestor) 10 mg PO HS [facility] Last Admin: 06/10/18 21:12 Dose: 10 mg - Labs Labs: 06/07/18 07:47 06/11/18 06:08
--- NOTE | 2018-06-12 07:17 | CP.PCM.CON ---
History of Present Illness - History of Present Illness History of Present Illness: CONSULTATION DICTATED VERTIGO RIGHT LATERAL NYSTAGMUS APPENDICULAR DYSMETRIA LEFT LOWER BRAIN DYSFUNCTION - ? NEW ISCHEMIA ?? VESTIBULAR NEURONITIS DYSEQUILIBRIUM SYNDROME MRI/CAROTID/EEG BLOOD WORK UP ON ANTIPLATELETS DVT PROPHYLAXIS HYDRATION /MVT SUPPLEMENTS Past Patient History - Past Medical History & Family History Past Medical History?: Yes - Past Social History Smoking Status: Never Smoked Alcohol: None - CARDIAC Hx Hypertension: Yes - PULMONARY Hx Asthma: Yes - NEUROLOGICAL Hx Neurological Disorder: No - HEENT Hx HEENT Problems: No - RENAL Hx Chronic Kidney Disease: No - ENDOCRINE/METABOLIC Hx Endocrine Disorders: No - HEMATOLOGICAL/ONCOLOGICAL Hx Cancer: No - INTEGUMENTARY Hx Dermatological Problems: No - MUSCULOSKELETAL/RHEUMATOLOGICAL Hx Arthritis: Yes (KNEE JT; BACK) - GASTROINTESTINAL Hx Gastrointestinal Disorders: Yes Other/Comment: abdominal pain - GENITOURINARY/GYNECOLOGICAL Hx Genitourinary Disorders: No - PSYCHIATRIC Hx Substance Use: No - SURGICAL HISTORY Hx Appendectomy: Yes Hx Cholecystectomy: Yes Hx Tonsillectomy: Yes - ANESTHESIA Hx Anesthesia: Yes Hx Anesthesia Reactions: No Hx Malignant Hyperthermia: No Meds Allergies/Adverse Reactions: Allergies Allergy/AdvReac Type Severity Reaction Status Date / Time No Known Allergies Allergy Verified 05/31/18 14:06 - Medications Medications: Current Medications Allopurinol (Zyloprim) 100 mg PO DAILY [facility] Amlodipine Besylate (Norvasc) 10 mg PO DAILY [facility] Last Admin: 06/11/18 09:52 Dose: 10 mg Clopidogrel Bisulfate (Plavix) 75 mg PO DAILY [facility] Colchicine (Colocrys) 0.6 mg PO BID [facility] Last Admin: 06/11/18 17:13 Dose: 0.6 mg Enoxaparin Sodium (Lovenox) 40 mg SC DAILY [facility] Last Admin: 06/04/18 11:14 Dose: 40 mg Famotidine (Pepcid) 20 mg PO DAILY [facility] Folic Acid (Folic Acid) 1 mg PO DAILY [facility] Last Admin: 06/11/18 09:52 Dose: 1 mg Magnesium Oxide (Mag-Ox) 400 mg PO BID [facility] Last Admin: 06/11/18 17:13 Dose: 400 mg Meclizine HCl (Antivert) 25 mg PO Q8H PRN PRN Reason: Dizziness Last Admin: 06/09/18 10:47 Dose: 25 mg Naproxen (Anaprox Ds) 550 mg PO BID [facility] Last Admin: 06/11/18 17:13 Dose: 550 mg Nebivolol (Bystolic) 10 mg PO DAILY [facility] Last Admin: 06/11/18 09:53 Dose: 10 mg Ondansetron HCl (Zofran Tab) 4 mg PO BID PRN PRN Reason: Nausea/Vomiting Prednisone (Prednisone Tab) 10 mg PO DAILY [facility] Rosuvastatin Calcium (Crestor) 10 mg PO [facility] Last Admin: 06/11/18 21:31 Dose: 10 mg Results - Vital Signs Recent Vital Signs: Last Vital Signs Temp 98.6 F 06/12/18 00:00 Pulse 91 H 06/12/18 00:00 Resp 20 06/12/18 00:00 BP 146/78 06/12/18 00:00 Pulse Ox 98 06/12/18 00:00 - Labs Result Diagrams: 06/07/18 07:47 06/11/18 06:08 Labs: Laboratory Results - last 24 hr 06/05/18 07:15 Vitamin B1 22 L
[2018-06-12 07:31] LABS: BASO % 0.7 % (0.0-2.0); EOS % 0.7 % (0.0-4.0); HEMOGLOBIN 11.3 g/dL (11.0-16.0); LYMPH % 15.8 % (20.0-40.0); MEAN CELL VOLUME 79.8 fL (81.0-99.0); MEAN CORPUSCULAR HGB CONC 32.6 g/dL (33.0-37.0); MEAN PLATELET VOLUME 8.7 fL (7.2-11.7); MONO # 0.7 K/uL (0.0-0.8); MONO % 10.3 % (0.0-10.0); NEUT # 4.8 K/uL (1.8-7.0); NEUT % 72.5 % (50.0-75.0); RBC 4.35 Mil/uL (3.80-5.20); RED CELL DISTRIBUTION WIDTH 14.8 % (11.5-14.5); WHITE BLOOD COUNT 6.6 K/uL (4.8-10.8)
[2018-06-12 07:52] LABS: ALBUMIN 3.4 g/dL (3.5-5.0); CALCIUM 8.5 mg/dl (8.6-10.4)
[2018-06-12 08:58] LABS: FOLATE 6.8 ng/mL
[2018-06-12] MEDS: Naproxen 550 mg Tab PO SCH ×2 (09:51→17:43)
[2018-06-12] MEDS: Magnesium Oxide 400 mg Tab UD PO SCH ×2 (09:51→17:43)
[2018-06-12 10:24] LABS: FREE T4 1.19 ng/dL (0.78-2.19)
[2018-06-12] MEDS: Magnesium Sulfate 1 gm in D5W 1 GM/100 ML BAG IVPB SCH ×2 (14:27→14:28)
--- NOTE | 2018-06-12 16:30 | CP.PCM.PN ---
Subjective - Date & Time of Evaluation Date of Evaluation: 06/12/18 Time of Evaluation: 16:27 - Subjective Subjective: Patient reports no further nausea or vomiting. She is tolerating small portions of regular food. She denies having abdominal pain and diarrrhea. Objective - Vital Signs/Intake and Output Vital Signs (last 24 hours): Temp Pulse Resp BP Pulse Ox 98 F 80 20 125/69 96 06/12/18 07:49 06/12/18 07:49 06/12/18 07:49 06/12/18 07:49 06/12/18 07:49 Intake and Output: 06/12/18 06/12/18 06:59 18:59 Intake Total 120 400 Balance 120 400 - Medications Medications: Current Medications Allopurinol (Zyloprim) 100 mg PO DAILY [facility] Last Admin: 06/12/18 09:52 Dose: 100 mg Amlodipine Besylate (Norvasc) 10 mg PO DAILY [facility] Last Admin: 06/12/18 09:52 Dose: 10 mg Clopidogrel Bisulfate (Plavix) 75 mg PO DAILY [facility] Last Admin: 06/12/18 09:51 Dose: 75 mg Colchicine (Colocrys) 0.6 mg PO BID [facility] Last Admin: 06/12/18 09:50 Dose: 0.6 mg Enoxaparin Sodium (Lovenox) 40 mg SC DAILY [facility] Last Admin: 06/04/18 11:14 Dose: 40 mg Famotidine (Pepcid) 20 mg PO DAILY [facility] Last Admin: 06/12/18 09:52 Dose: 20 mg Folic Acid (Folic Acid) 1 mg PO DAILY [facility] Last Admin: 06/12/18 09:51 Dose: 1 mg Magnesium Oxide (Mag-Ox) 800 mg PO BID [facility] Meclizine HCl (Antivert) 25 mg PO Q8H PRN PRN Reason: Dizziness Last Admin: 06/09/18 10:47 Dose: 25 mg Naproxen (Anaprox Ds) 550 mg PO BID [facility] Last Admin: 06/12/18 09:51 Dose: 550 mg Nebivolol (Bystolic) 10 mg PO DAILY [facility] Last Admin: 06/12/18 09:53 Dose: 10 mg Ondansetron HCl (Zofran Tab) 4 mg PO BID PRN PRN Reason: Nausea/Vomiting Prednisone (Prednisone Tab) 10 mg PO DAILY [facility] Last Admin: 06/12/18 09:51 Dose: 10 mg Rosuvastatin Calcium (Crestor) 10 mg PO HS [facility] Last Admin: 06/11/18 21:31 Dose: 10 mg - Labs Labs: 06/12/18 07:21 06/12/18 07:21 - Constitutional Appears: No Acute Distress - Head Exam Head Exam: ATRAUMATIC, NORMOCEPHALIC - Eye Exam Eye Exam: EOMI, PERRL - Neck Exam Neck Exam: absent: Lymphadenopathy, Thyromegaly - Respiratory Exam Respiratory Exam: NORMAL BREATHING PATTERN. absent: Rales, Rhonchi, Wheezes - Cardiovascular Exam Cardiovascular Exam: REGULAR RHYTHM, +S1, +S2. absent: Gallop, Rubs, Murmur - GI/Abdominal Exam GI & Abdominal Exam: Soft, Normal Bowel Sounds. absent: Tenderness, Mass, Organomegaly - Rectal Exam Rectal Exam: Deferred - Extremities Exam Extremities Exam: absent: Calf Tenderness Assessment and Plan (1) Nausea and vomiting Assessment & Plan: Nausea and vomiting have improved. Patient was seen by Dr. Agee who recommended EEG. Will observe on regular diet. Plan for outpatient colonoscopy. Status: Acute
--- NOTE | 2018-06-12 18:55 | CT ---
Date of service: 06/12/2018 PROCEDURE: CT HEAD WITHOUT CONTRAST. HISTORY: r/o stroke,dizziness COMPARISON: None available. TECHNIQUE: Axial computed tomography images were obtained through the head/brain without intravenous contrast. Radiation dose: Total exam DLP = 1064.22 mGy-cm. This CT exam was performed using one or more of the following dose reduction techniques: Automated exposure control, adjustment of the mA and/or kV according to patient size, and/or use of iterative reconstruction technique. FINDINGS: The examination is technically limited, possibly the patient motion artifact. HEMORRHAGE: No intracranial hemorrhage. BRAIN: No mass effect or edema. Minimal chronic periventricular white matter lucency consistent with microvascular white matter ischemic change. Remote ischemic change in the anterior limb left internal capsule. No evidence of acute infarct. VENTRICLES: Unremarkable. No hydrocephalus. CALVARIUM: Unremarkable. PARANASAL SINUSES: Unremarkable as visualized. No significant inflammatory changes. MASTOID AIR CELLS: Unremarkable as visualized. No inflammatory changes. OTHER FINDINGS: None. IMPRESSION: No intracranial mass, hemorrhage or evidence of acute infarct. Chronic white matter ischemic change.
--- NOTE | 2018-06-12 19:09 | CP.PCM.PN ---
Subjective - Date & Time of Evaluation Date of Evaluation: 06/12/18 Time of Evaluation: 19:09 Objective - Vital Signs/Intake and Output Vital Signs (last 24 hours): Temp Pulse Resp BP Pulse Ox 97.8 F 81 20 116/73 96 06/12/18 17:02 06/12/18 17:02 06/12/18 17:02 06/12/18 17:02 06/12/18 17:02 Intake and Output: 06/12/18 06/13/18 18:59 06:59 Intake Total 400 Balance 400 - Medications Medications: Current Medications Allopurinol (Zyloprim) 100 mg PO DAILY [facility] Last Admin: 06/12/18 09:52 Dose: 100 mg Amlodipine Besylate (Norvasc) 10 mg PO DAILY [facility] Last Admin: 06/12/18 09:52 Dose: 10 mg Clopidogrel Bisulfate (Plavix) 75 mg PO DAILY [facility] Last Admin: 06/12/18 09:51 Dose: 75 mg Colchicine (Colocrys) 0.6 mg PO BID [facility] Last Admin: 06/12/18 17:43 Dose: 0.6 mg Enoxaparin Sodium (Lovenox) 40 mg SC DAILY [facility] Last Admin: 06/04/18 11:14 Dose: 40 mg Famotidine (Pepcid) 20 mg PO DAILY [facility] Last Admin: 06/12/18 09:52 Dose: 20 mg Folic Acid (Folic Acid) 1 mg PO DAILY [facility] Last Admin: 06/12/18 09:51 Dose: 1 mg Magnesium Oxide (Mag-Ox) 800 mg PO BID [facility] Last Admin: 06/12/18 17:43 Dose: 800 mg Meclizine HCl (Antivert) 25 mg PO Q8H PRN PRN Reason: Dizziness Last Admin: 06/09/18 10:47 Dose: 25 mg Naproxen (Anaprox Ds) 550 mg PO BID [facility] Last Admin: 06/12/18 17:43 Dose: 550 mg Nebivolol (Bystolic) 10 mg PO DAILY [facility] Last Admin: 06/12/18 09:53 Dose: 10 mg Ondansetron HCl (Zofran Tab) 4 mg PO BID PRN PRN Reason: Nausea/Vomiting Prednisone (Prednisone Tab) 10 mg PO DAILY [facility] Last Admin: 06/12/18 09:51 Dose: 10 mg Rosuvastatin Calcium (Crestor) 10 mg PO HS [facility] Last Admin: 06/11/18 21:31 Dose: 10 mg - Labs Labs: 06/12/18 07:21 06/12/18 07:21
--- NOTE | 2018-06-12 19:41 | CON ---
DATE: 06/12/2018 LOCATION: Room 371, bed B. REASON FOR CONSULTATION: Dizziness. ATTENDING PHYSICIAN: Elio Bruner MD DATE OF ADMISSION: 05/31/2018 DATE OF EVALUATION: 06/12/2018 TIME OF EVALUATION: 06:55 a.m. CHIEF COMPLAINT: The patient was brought in to [facility] with history of recurrent abdominal pain, nausea and vomiting. During her hospitalization following a Gastroenterology workup and treatment, the patient started to notice dizziness for the last 2 days. From neurological point of view, I was called in to evaluate her for further management. HISTORY OF PRESENT ILLNESS: Ms. Ana Hargrove is a right-handed, morbidly obese, -Citizen Of [place] female presenting with nausea, vomiting and abdominal discomfort for about 2 months. Since it has been getting worse, she has been advised to be admitted for further evaluation because of persistent nausea, vomiting and diarrhea. She has been getting workup from Gastroenterology and been treated with hydration and multivitamins. Since 3 days ago, she started to have dizziness while she was lying down. From the patient, it started as abrupt. She feels like a vertiginous feeling. Even her eyes closed, she has the same problem. She could not able to quantify her symptoms whether it is getting worse on changing her position, sitting, standing. She has been lying down ever since she has been admitted. These symptoms not associating with headache. No history of double vision. No history of speech and swallow evaluation. No history of focal weakness. Similar episodes happened when she was in the elder age group. PAST MEDICAL HISTORY: Dyslipidemia, hypertension and asthma. PERSONAL HISTORY: Denies smoking or alcohol use. SURGICAL HISTORY: Back surgery 2007, cholecystectomy, tonsillectomy, appendectomy. PERSONAL HISTORY: No history of smoking or alcohol use. REVIEW OF SYSTEMS: A 12-point system being reviewed. From neuro, new onset of dizziness. MEDICATIONS: Anaprox, Antivert, Bystolic, colchicine, Crestor, folic acid, Lovenox, Norvasc, Pepcid, clopidogrel, Zofran and allopurinol. PHYSICAL EXAMINATION: VITAL SIGNS: Blood pressure 146/78, mean artery pressure of 100, respiratory rate 18, temperature afebrile. NECK: Supple. No carotid bruits. HEART: Sounds regular. CHEST: Fair air entry. EXTREMITIES: 1+ pitting edema, both legs are externally rotated, seems to be left more than the right side. NEUROLOGIC: Mental status examination: She is arousable on calling her first name. She is oriented to person, place and time. Speech is clear. Naming, repetition, fluency, comprehension all within normal. Cranial nerve examination: Visual field intact. Pupils reactive to light. Extraocular movement normal, right end gaze nystagmus present. No facial asymmetry. Hearing is normal. Tongue is midline. Good gag. Motor examination: On an outstretched hand with eyes closed, no drift noted. Strength is equal in upper extremities; however, pain-limited exam and range of motion is limited due to the pain in her both lower extremities, left more than her right side. She could able to move foot up and down with 5/5 strength. Deep tendon reflexes are absent in all upper and lower extremities. Plantars are downgoing. Sensory examination seems to be intact. Position column is intact. Coordination: Dysmetria on finger-nose testing, left more than her right side. Gait is deferred at this time. CONCLUSION: On reviewing her history from the records from her, the patient has been suffering from possible left lower brainstem dysfunction manifesting with right end gaze nystagmus with dysmetria on her left side more than her right side. This is probably ischemic process secondary to her underlying risk factors including obesity, dyslipidemia and hypertension. However, other possible causes should be ruled out could be a peripheral etiology of vestibular neuronitis. The patient presenting with areflexic with ataxia consistent with possible Guillain-[place] syndrome variant; however, I doubt on this diagnosis. Workup: CT of the head reviewed by me showed lucency at left deep clement radiata region consistent with ischemic process. It may be a subacute process versus old. EKG: Normal sinus rhythm. Blood Workup: WBC 4.1, hemoglobin 11, hematocrit 33.9, platelet 171. Sodium 137, potassium 2.8, been on supplements, chloride 105, bicarbonate 24, BUN 3, creatinine 1.5, GFR 42, ferritin 225, iron 37, TIBC 199, CRP 25.1, total protein 6.1, albumin 3, B12 of 324, vitamin D 28.4, folate 2.4. Magnesium, vitamin B1, B2, B6 were all low. Urine shows epithelial cells. Stool is normal. RECOMMENDATION: 1. Proper hydration. 2. Electrolyte supplements. 3. DVT prophylaxis. 4. Medically stable, the patient should get out of the bed and physical therapy should be initiated. 5. Blood workup as per the order. 6. Stroke prophylaxis. Advised to continue Plavix with the blood pressure medication. The patient's condition has been well discussed with the patient. The patient agreed with my plan of management. The patient will be followed closely with you. Sae Agee MD
--- NOTE | 2018-06-12 20:32 | CP.PCM.CON ---
History of Present Illness - History of Present Illness History of Present Illness: 67 yr old asthmatic woman admitted with persistent vomiting and watery diarrhea since March accompanied by poor appetite, 20 lb weight loss and abdominal discomfort. CT without oral contrast suggested sigmoid inflammation in region of diverticulosis so patient was begun on Cipro and Flagyl for diverticulitis. Recently started spiking fevers ID consulted for this Neuro on board for possible ischemic stroke work up in progress ROS + for gout symptoms - Medical History PMH: Asthma, HTN, Hyperlipidemia Gout Surgical History: Appendectomy, Back Surgery, Cholecystectomy, Tonsillectomy Family History: States: No Known Family Hx Review of Systems - Constitutional Constitutional: As Per HPI - EENT Eyes: absent: As Per HPI, Blind Spots, Blurred Vision, Change in Vision, Decreased Night Vision, Diplopia, Discharge, Dry Eye, Exophthalmos, Floaters, Irritation, Itchy Eyes, Loss of Peripheral Vision, Pain, Photophobia, Requires Corrective Lenses, Sees Flashes, Spots in Vision, Tunnel Vision, Other Visual Disturbances, Loss of Vision, Other Ears: absent: As Per HPI, Decreased Hearing, Ear Discharge, Ear Pain, Tinnitus, Abnormal Hearing, Disequilibrium, Dizziness, Other Nose/Mouth/Throat: absent: As Per HPI, Epistaxis, Nasal Congestion, Nasal Discharge, Nasal Obstruction, Nasal Trauma, Nose Pain, Post Nasal Drip, Sinus Pain, Sinus Pressure, Bleeding Gums, Change in Voice, Dental Pain, Dry Mouth, Dysphagia, Halitosis, Hoarsness, Lip Swelling, Mouth Lesions, Mouth Pain, Odynophagia, Sore Throat, Throat Swelling, Tongue Swelling, Facial Pain, Neck Pain, Neck Mass, Other - Breasts Breasts: absent: As Per HPI, Change in Shape, Mass, Pain, Nipple Discharge, Nipple Inversion, Skin Changes, Swelling, Other - Cardiovascular Cardiovascular: As Per HPI - Respiratory Respiratory: As Per HPI - Gastrointestinal Gastrointestinal: As Per HPI - Menstruation Menstruation: absent: As Per HPI, Amenorrhea, Amenorrhea/ Control, Currently Menstual, Cycle <21 Days, Cycle >35 Days, Cycle Variable, Menses 1-7 Days, Menses >/= 8 Days, Menses Variable, Cycle > 4 Weeks Between, No Menses for 6 Months, Heavy Menses, Light Menses, Normal Menses, Spotting Between Cycles, S/P Hysterectomy, Menopausal, Post Menopausal, Premenarche, Abnormal Vaginal Bleeding, Dysmenorrhea, Other - Musculoskeletal Musculoskeletal: As Per HPI, Abnormal Gait, Joint Swelling, Stiffness - Neurological Neurological: As Per HPI - Psychiatric Psychiatric: absent: As Per HPI, Abnormal Sleep Pattern, Anhedonia, Anxiety, Auditory Hallucinations, Behavioral Changes, Change in Appetite, Change in Libido, Confusion, Depression, Difficulty Concentrating, Hallucinations, Homicidal Ideation, Hopelessness, Irritability, Memory Loss, Mood Swings, Panic Attacks, Paranoia, Suicidal Ideation, Visual Hallucinations, Tactile Hallucinations, Other - Endocrine Endocrine: absent: As Per HPI, Change in Body Appearance, Change in Libido, Cold Intolorance, Deepening of Voice, Excessive Sweating, Fatigue, Flushing, Heat Intolorance, Increase in Ring/Shoe/Hat Size, Palpitations, Polydipsia, Polyphagia, Polyuria, Other - Hematologic/Lymphatic Hematologic: absent: As Per HPI, Easy Bleeding, Easy Bruising, Lymphadenopathy, Other Past Patient History - Past Medical History & Family History Past Medical History?: Yes - Past Social History Smoking Status: Never Smoked Alcohol: None - CARDIAC Hx Hypertension: Yes - PULMONARY Hx Asthma: Yes - NEUROLOGICAL Hx Neurological Disorder: No - HEENT Hx HEENT Problems: No - RENAL Hx Chronic Kidney Disease: No - ENDOCRINE/METABOLIC Hx Endocrine Disorders: No - HEMATOLOGICAL/ONCOLOGICAL Hx Cancer: No - INTEGUMENTARY Hx Dermatological Problems: No - MUSCULOSKELETAL/RHEUMATOLOGICAL Hx Arthritis: Yes (KNEE JT; BACK) - GASTROINTESTINAL Hx Gastrointestinal Disorders: Yes Other/Comment: abdominal pain - GENITOURINARY/GYNECOLOGICAL Hx Genitourinary Disorders: No - PSYCHIATRIC Hx Substance Use: No - SURGICAL HISTORY Hx Appendectomy: Yes Hx Cholecystectomy: Yes Hx Tonsillectomy: Yes - ANESTHESIA Hx Anesthesia: Yes Hx Anesthesia Reactions: No Hx Malignant Hyperthermia: No Meds Allergies/Adverse Reactions: Allergies Allergy/AdvReac Type Severity Reaction Status Date / Time No Known Allergies Allergy Verified 05/31/18 14:06 - Medications Medications: Current Medications Allopurinol (Zyloprim) 100 mg PO DAILY [facility] Last Admin: 06/12/18 09:52 Dose: 100 mg Amlodipine Besylate (Norvasc) 10 mg PO DAILY [facility] Last Admin: 06/12/18 09:52 Dose: 10 mg Clopidogrel Bisulfate (Plavix) 75 mg PO DAILY [facility] Last Admin: 06/12/18 09:51 Dose: 75 mg Colchicine (Colocrys) 0.6 mg PO BID [facility] Last Admin: 06/12/18 17:43 Dose: 0.6 mg Enoxaparin Sodium (Lovenox) 40 mg SC DAILY [facility] Last Admin: 06/04/18 11:14 Dose: 40 mg Famotidine (Pepcid) 20 mg PO DAILY [facility] Last Admin: 06/12/18 09:52 Dose: 20 mg Folic Acid (Folic Acid) 1 mg PO DAILY [facility] Last Admin: 06/12/18 09:51 Dose: 1 mg Magnesium Oxide (Mag-Ox) 800 mg PO BID [facility] Last Admin: 06/12/18 17:43 Dose: 800 mg Meclizine HCl (Antivert) 25 mg PO Q8H PRN PRN Reason: Dizziness Last Admin: 06/09/18 10:47 Dose: 25 mg Naproxen (Anaprox Ds) 550 mg PO BID [facility] Last Admin: 06/12/18 17:43 Dose: 550 mg Nebivolol (Bystolic) 10 mg PO DAILY [facility] Last Admin: 06/12/18 09:53 Dose: 10 mg Ondansetron HCl (Zofran Tab) 4 mg PO BID PRN PRN Reason: Nausea/Vomiting Prednisone (Prednisone Tab) 10 mg PO DAILY [facility] Last Admin: 06/12/18 09:51 Dose: 10 mg Rosuvastatin Calcium (Crestor) 10 mg PO HS [facility] Last Admin: 06/11/18 21:31 Dose: 10 mg Physical Exam - Constitutional Appears: Non-toxic, No Acute Distress, Chronically Ill - Head Exam Head Exam: ATRAUMATIC, NORMAL INSPECTION, NORMOCEPHALIC - Eye Exam Eye Exam: EOMI, Normal appearance, PERRL Pupil Exam: NORMAL ACCOMODATION, PERRL - ENT Exam ENT Exam: Mucous Membranes Moist, Normal Exam - Neck Exam Neck exam: Positive for: Normal Inspection - Respiratory Exam Respiratory Exam: Clear to Auscultation Bilateral, NORMAL BREATHING PATTERN - Cardiovascular Exam Cardiovascular Exam: REGULAR RHYTHM - GI/Abdominal Exam GI & Abdominal Exam: Normal Bowel Sounds, Soft. absent: Tenderness - Rectal Exam Rectal Exam: Deferred - Exam Exam: NORMAL INSPECTION - Extremities Exam Extremities exam: Positive for: normal inspection - Back Exam Back exam: NORMAL INSPECTION - Neurological Exam Neurological exam: Alert, CN II-XII Intact, Motor Sensory Deficit, Oriented x3 - Psychiatric Exam Psychiatric exam: Normal Affect, Normal Mood - Skin Skin Exam: Dry, Intact, Normal Color, Warm Results - Vital Signs Recent Vital Signs: Last Vital Signs Temp 97.8 F 06/12/18 17:02 Pulse 81 06/12/18 17:02 Resp 20 06/12/18 17:02 BP 116/73 06/12/18 17:02 Pulse Ox 96 06/12/18 17:02 - Labs Result Diagrams: 06/12/18 07:21 06/12/18 07:21 Labs: Laboratory Results - last 24 hr 06/12/18 06/12/18 06/12/18 07:21 07:21 07:21 WBC 6.6 RBC 4.35 Hgb 11.3 Hct 34.7 MCV 79.8 L MCH 26.0 L MCHC 32.6 L RDW 14.8 H Plt Count 223 MPV 8.7 Neut % (Auto) 72.5 Lymph % (Auto) 15.8 L [place] % (Auto) 10.3 H Eos % (Auto) 0.7 Baso % (Auto) 0.7 Neut # (Auto) 4.8 Lymph # (Auto) 1.0 [place] # (Auto) 0.7 Eos # (Auto) 0.0 Baso # (Auto) 0.0 Sodium 135 Potassium 3.8 Chloride 102 Carbon Dioxide 26 Anion Gap 10 BUN 9 Creatinine 1.2 Est GFR ( Amer) 54 Est GFR (Non-Af Amer) 45 Random Glucose 119 H D Calcium 8.5 L Magnesium 1.2 L Total Bilirubin 0.7 AST 13 L D ALT 6 L Alkaline Phosphatase 112 Total Protein 6.8 Albumin 3.4 L Globulin 3.4 Albumin/Globulin Ratio 1.0 Vitamin B12 303 Folate 6.8 Free T4 1.19 TSH 3rd Generation 1.82 RPR HIV 1&2 Antibody Screen 06/12/18 06/12/18 07:21 07:21 WBC RBC Hgb Hct MCV MCH MCHC RDW Plt Count MPV Neut % (Auto) Lymph % (Auto) [place] % (Auto) Eos % (Auto) Baso % (Auto) Neut # (Auto) Lymph # (Auto) [place] # (Auto) Eos # (Auto) Baso # (Auto) Sodium Potassium Chloride Carbon Dioxide Anion Gap BUN Creatinine Est GFR ( Amer) Est GFR (Non-Af Amer) Random Glucose Calcium Magnesium Total Bilirubin AST ALT Alkaline Phosphatase Total Protein Albumin Globulin Albumin/Globulin Ratio Vitamin B12 Folate Free T4 TSH 3rd Generation RPR Nonreactive HIV 1&2 Antibody Screen Negative Assessment & Plan (1) Fever Status: Acute (2) Gout attack Status: Acute (3) Obesity (BMI 30-39.9) Status: Acute (4) Abdominal pain Status: Acute (5) Chronic diarrhea Status: Acute - Assessment and Plan (Free Text) Assessment: await cultures cont aggresive treatment of Gout withhold IV antibiotics at present will follow with you
[2018-06-13] MEDS ORDERED: Magnesium Sulfate 1 gm in D5W 1 GM/100 ML BAG IVPB ONE (07:30)
[2018-06-13] MEDS: Naproxen 550 mg Tab PO SCH ×2 (11:12→17:43)
[2018-06-13] MEDS: Magnesium Oxide 400 mg Tab UD PO SCH ×2 (11:14→17:43)
--- NOTE | 2018-06-13 11:51 | PN ---
DATE: 06/13/2018 TIME OF EVALUATION: 06:25 a.m. NEUROLOGICAL PROBLEM: Possible brainstem stroke versus vestibular neuronitis. PHYSICAL EXAMINATION: VITAL SIGNS: Blood pressure 141/77, mean arterial pressure of 98, respiratory rate 18, pulse rate 81 and regular, and temperature 98.5. GENERAL: The patient is awake, alert, oriented to person, place and time. Speech is clear. Cranial nerves are all normal. Motor examination is unchanged. Still she has mild dysmetria on the left side with finger-nose testing to compare with the right side. End gaze nystagmus is resolved. ASSESSMENT AND PLAN: The recommended workup, the MRI of the brain, which was not done due to her physique. A followup CT of the head with symptoms seen at brainstem does not show any ischemic process; however, CAT scan would not forklift picker the small ischemic process in the brainstem region. Considering her risk factors, probably she might have small ischemic process in the brainstem region. However, the patient has been started on anti-platelets and other stroke prophylaxis including statin and recommended angiotensin receptor blockers. The patient should get out of the bed, deep vein thrombosis prophylaxis. From neurologic point of view, I am clearing her off from further followup unless there is a change in her status. The patient is advised to follow up with me as an outpatient for further workup which is pending in hospitalization. Sae Agee MD HANNY
[2018-06-13 12:21] LABS: CALCIUM 8.7 mg/dl (8.6-10.4)
--- NOTE | 2018-06-13 13:56 | CP.PCM.DIS ---
Provider - Provider Date of Admission: 05/31/18 18:56 Attending physician: Elio Bruner MD Consults: 05/31/18 21:14 Gastroenterology Consult Routine Comment: Consulting Provider: Syed Harper Consulting Physician: Syed Harper Reason for Consult: diverticulitis/vomiting 06/11/18 10:41 Neurology Consult Routine Comment: Consulting Provider: Sae Agee Consulting Physician: Sae Agee Reason for Consult: Dizziness 06/11/18 18:15 Physician Consult Routine Comment: Consulting Provider: Arvind Patel Consulting Physician: Arvind Patel Reason for Consult: Fever Hospital Course - Lab Results Lab Results: Micro Results 06/11/18 17:00 Blood-Venous Blood Culture - Preliminary NO GROWTH AFTER 24 HOURS 06/11/18 16:45 Blood-Venous Blood Culture - Preliminary NO GROWTH AFTER 24 HOURS 06/10/18 14:28 Urine Random Urine Culture - Final No Growth (<1,000 CFU/ML) 06/04/18 12:32 Stool Stool Culture - Final NO SALMONELLA, SHIGELLA OR CAMPYLOBACTER ISOLATED. 06/04/18 12:32 Stool Ova and Parasite Concentrate Exam - Final 05/31/18 20:32 Blood Blood Culture - Final NO GROWTH AFTER 5 DAYS 05/31/18 20:32 Blood Gram Stain - Final TEST NOT PERFORMED 05/31/18 20:32 Blood Blood Culture - Final NO GROWTH AFTER 5 DAYS 05/31/18 20:32 Blood Gram Stain - Final TEST NOT PERFORMED Most Recent Lab Values WBC 6.6 K/uL (4.8-10.8) 06/12/18 07:21 RBC 4.35 Mil/uL (3.80-5.20) 06/12/18 07:21 Hgb 11.3 g/dL (11.0-16.0) 06/12/18 07:21 Hct 34.7 % (34.0-47.0) 06/12/18 07:21 MCV 79.8 fL (81.0-99.0) L 06/12/18 07:21 MCH 26.0 pg (27.0-31.0) L 06/12/18 07:21 MCHC 32.6 g/dL (33.0-37.0) L 06/12/18 07:21 RDW 14.8 % (11.5-14.5) H 06/12/18 07:21 Plt Count 223 K/uL (130-400) 06/12/18 07:21 MPV 8.7 fL (7.2-11.7) 06/12/18 07:21 Neut % (Auto) 72.5 % (50.0-75.0) 06/12/18 07:21 Lymph % (Auto) 15.8 % (20.0-40.0) L 06/12/18 07:21 [place] % (Auto) 10.3 % (0.0-10.0) H 06/12/18 07:21 Eos % (Auto) 0.7 % (0.0-4.0) 06/12/18 07:21 Baso % (Auto) 0.7 % (0.0-2.0) 06/12/18 07:21 Neut # (Auto) 4.8 K/uL (1.8-7.0) 06/12/18 07:21 Lymph # (Auto) 1.0 K/uL (1.0-4.3) 06/12/18 07:21 [place]vin # (Auto) 0.7 K/uL (0.0-0.8) 06/12/18 07:21 Eos # (Auto) 0.0 K/uL (0.0-0.7) 06/12/18 07:21 Baso # (Auto) 0.0 K/uL (0.0-0.2) 06/12/18 07:21 Sodium 138 mmol/L (132-148) 06/13/18 11:49 Potassium 3.6 mmol/L (3.6-5.2) 06/13/18 11:49 Chloride 103 mmol/L (98-107) 06/13/18 11:49 Carbon Dioxide 31 mmol/L (22-30) H 06/13/18 11:49 Anion Gap 8 (10-20) L 06/13/18 11:49 BUN 15 mg/dL (7-17) 06/13/18 11:49 Creatinine 1.2 mg/dL (0.7-1.2) 06/13/18 11:49 Est GFR ( Amer) 54 06/13/18 11:49 Est GFR (Non-Af Amer) 45 06/13/18 11:49 POC Glucose (mg/dL) 99 mg/dL (65-110) 06/09/18 07:35 Random Glucose 121 mg/dL (65-105) H 06/13/18 11:49 Uric Acid 8.2 mg/dL (2.2-7.5) H 06/11/18 06:08 Calcium 8.7 mg/dl (8.6-10.4) 06/13/18 11:49 Phosphorus 2.6 mg/dL (2.5-4.5) 06/05/18 06:01 Magnesium 1.5 mg/dL (1.6-2.3) L 06/13/18 11:49 Iron 37 ug/dL (37-170) 06/03/18 12:11 TIBC 199 ug/dL (250-450) L 06/03/18 12:11 % Saturation 19 (20-55) L 06/03/18 12:11 Ferritin 225.0 ng/mL 06/03/18 12:11 Total Bilirubin 0.7 mg/dL (0.2-1.3) 06/12/18 07:21 AST 13 U/L (14-36) L D 06/12/18 07:21 ALT 6 U/L (9-52) L 06/12/18 07:21 Alkaline Phosphatase 112 U/L (38-126) 06/12/18 07:21 C-Reactive Protein 25.10 mg/L (0.0-9.9) H 06/03/18 12:11 Total Protein 6.8 g/dL (6.3-8.3) 06/12/18 07:21 Albumin 3.4 g/dL (3.5-5.0) L 06/12/18 07:21 Globulin 3.4 gm/dL (2.2-3.9) 06/12/18 07:21 Albumin/Globulin Ratio 1.0 (1.0-2.1) 06/12/18 07:21 Lipase 32 U/L (23-300) 05/31/18 15:13 Vitamin B1 22 nmol/L (78-185) L 06/05/18 07:15 Vitamin B2 < 5.0 nmol/L (6.2-39.0) L 06/05/18 07:15 Vitamin B6 <2.0 ng/mL (2.1-21.7) L 06/05/18 07:15 Vitamin B12 303 pg/mL (239-931) 06/12/18 07:21 25-OH Vitamin D Total 28.4 NG/ML (30.0-100.0) L 06/03/18 12:11 Folate 6.8 ng/mL 06/12/18 07:21 Free T4 1.19 ng/dL (0.78-2.19) 06/12/18 07:21 TSH 3rd Generation 1.82 mIU/L (0.46-4.68) 06/12/18 07:21 Urine Color [place] (YELLOW) 06/10/18 14:28 Urine Clarity Hazy (Clear) 06/10/18 14:28 Urine pH 6.0 (5.0-8.0) 06/10/18 14:28 Ur Specific [place] 1.016 (1.003-1.030) 06/10/18 14:28 Urine Protein Negative mg/dL (NEGATIVE) 06/10/18 14:28 Urine Glucose (UA) Normal mg/dL (Normal) 06/10/18 14:28 Urine Ketones Negative mg/dL (NEGATIVE) 06/10/18 14:28 Urine Blood Negative (NEGATIVE) 06/10/18 14:28 Urine Nitrate Negative (NEGATIVE) 06/10/18 14:28 Urine Bilirubin Negative (NEGATIVE) 06/10/18 14:28 Urine Urobilinogen Normal mg/dL (0.2-1.0) 06/10/18 14:28 Ur Leukocyte Esterase Trace [place]/uL (Negative) 06/10/18 14:28 Urine WBC (Auto) 5 /hpf (0-5) 06/10/18 14:28 Urine RBC (Auto) 1 /hpf (0-3) 06/10/18 14:28 Ur Squamous Epith Cells 10 /hpf (0-5) H 06/10/18 14:28 Urine Bacteria Rare (<OCC) 06/10/18 14:28 Stool Fat, Qual See note 06/03/18 12:32 Stool Sodium 39.80 mEq/L 06/03/18 12:32 Stool Potassium 29 mEq/L 06/03/18 12:32 Stool Chloride 21 mEq/L 06/03/18 12:32 Stool Leukocytes, Qual Negative (NEGATIVE) 06/03/18 12:32 Theophylline 9.8 ug/ml (10-20) L 05/31/18 21:22 IgA 368 mg/dL (81-463) 06/03/18 12:11 Endomysial IgA Ab Titer TEST NOT PERFORMED 06/03/18 12:11 Endomysial IgA Ab TEST NOT PERFORMED 06/03/18 12:11 Tiss Transglutamin IgA 1 U/mL 06/03/18 12:11 Celiac Disease Interp See note 06/03/18 12:11 RPR Nonreactive (NONREACTIVE) 06/12/18 07:21 C. difficile Ag & Toxin Negative (NEGATIVE) 06/01/18 04:06 Giardia Antigen Not detected (Not Detected) 06/03/18 07:25 HIV 1&2 Antibody Screen Negative (NEGATIVE) 06/12/18 07:21 Discharge Exam - Head Exam Head Exam: ATRAUMATIC, NORMAL INSPECTION, NORMOCEPHALIC Discharge Plan - Discharge Medications Prescriptions: Magnesium Oxide [Mag-Ox] 400 mg PO BID #14 tab predniSONE [Prednisone] 10 mg PO DAILY #5 tab Pantoprazole [Protonix EC Tab] 40 mg PO DAILY #30 ect - Follow Up Plan Condition: STABLE Disposition: HOME/ ROUTINE Additional Instructions: follow up with PMD in 1 week encourage oral fluids home care /home PT for generalized weakness magnisium sulphate 400mg po bid x1 week
[2018-06-13 16:06] VITALS: BP 118/77; PULSE 87; TEMP 98.1; O2SAT 96
== END 2018-06-13 18:55 | disposition home or self-care (01) | DRG 392 ==
LOC: C.ER 13:51 → C.9E 18:56 → C.3T 20:43
PROVIDERS: ADMIT Internal Medicine Critical Care Medicine; ATTEND Internal Medicine Critical Care Medicine
PROC: 0DB68ZX Excision of Stomach, Via Natural or Artificial Opening Endoscopic, Diagnostic (ICD-10-PCS; principal; 2018-06-05 08:10)
DX: K90.1 Tropical sprue (principal); K52.9 Noninfective gastroenteritis and colitis, unspecified; I10 Essential (primary) hypertension; E53.8 Deficiency of other specified B group vitamins; E78.5 Hyperlipidemia, unspecified; J45.909 Unspecified asthma, uncomplicated; T46.5X5A Adverse effect of other antihypertensive drugs, initial encounter; Z68.30 Body mass index [BMI] 30.0-30.9, adult; E66.9 Obesity, unspecified; K21.9 Gastro-esophageal reflux disease without esophagitis; K29.50 Unspecified chronic gastritis without bleeding; K44.9 Diaphragmatic hernia without obstruction or gangrene; K63.89 Other specified diseases of intestine; M10.9 Gout, unspecified